=== PATIENT | female | born 1990 | race Caucasian/White ===

== ENCOUNTER 2024-08-18 05:46 | Emergency (ER) | payer BC, SELFPAY ==
--- NOTE | ~2024-08-18 | CT_ITS ---
Clinical Indication: Shortness of breath CT Scan of the Chest with Contrast: Technique: Contiguous sections were acquired throughout the chest after intravenous administration of 100 cc of Omnipaque 350. Dose reduction technique was used on this scan by utilizing automated expos ure control and iterative reconstruction technique. The dose-length product (DLP) was 199.51 mGy-cm. Findings: There is no evidence of any significant mediastinal, hilar or axillary lymphadenopathy. There is no f illing defect in the pulmonary arterial tree to suggest pulmonary embolus. There is no evidence of ao rtic dissection or aneurysm. There is no evidence of pleural or pericardial effusion. The lungs are clear. No pulmonary nodules or infiltrates are noted. Images through the upper abdomen reveal no abnormalities. Impression: No evidence of pulmonary embolus, aortic dissection, or aortic aneurysm. Clear lungs. Reviewed, dictated and finalized at [facility]. Impression: No evidence of pulmonary embolus, aortic dissection, or aortic aneurysm. Clear lungs.
--- NOTE | ~2024-08-18 | US_ITS ---
Duplex Sonography of the bilateral lower extremities: Indication: Swelling Sagittal and transverse B-mode images as well as color-flow imaging were performed on the right and l eft femoral and popliteal veins. B-mode examination was done without and with compression in the tra nsverse plane. There is good visualization of the bilateral common femoral, proximal profunda femora l, superficial femoral, greater saphenous, and popliteal veins. Normal flow was seen on color-flow im aging. Normal compressibility was demonstrated. Visualized calf veins are also patent. Impression: No evidence of deep vein thrombosis involving the bilateral lower extremities. Reviewed, dictated and finalized at location [facility]. Impression: No evidence of deep vein thrombosis involving the bilateral lower e xtremities.
--- NOTE | ~2024-08-18 | XR_ITS ---
Portable chest x-ray Comparison: None Clinical History: Chest pain Findings: Lungs are clear, without focal consolidation or pleural effusion. Cardiomediastinal silho uette is unremarkable. Bones and soft tissues are unremarkable. Impression: Normal chest. Reviewed, dictated and finalized at location . Impression: Normal chest.
[2024-08-18 05:49] VITALS: BP 147/102; PULSE 130; RESP 17; TEMP 36.6; O2SAT 98
--- NOTE | 2024-08-18 05:59 | ECG_ITS ---
Test Date: 2024-08-18 06:03:38 Measurements Intervals Delta Rate: 121 P: 79 RI: 148 QRS: -14 QRSD: 90 T: 58 QT: 309 QTc: 440 Interpretive Statements SINUS TACHYCARDIA Electronically Signed On 08-19-2024 13:55:14 CDT by Chepe Felipe D.O
[2024-08-18 06:22] LABS: Basophils Percent Auto 0.4 % (0.2-1.2); Eosinophils Percent Auto 0.3 % (0-4.4); Hemoglobin 15.6 g/dL (12.0-15.0); Immature Granulocyte Absolute 0.02 K/mm3 (0.00-0.031); Immature Granulocyte Percent A 0.3 % (0-0.5); Lymphocytes Absolute Auto 1.77 K/mm3 (0.9-3.2); Lymphocytes Percent Auto 23.8 % (18.3-44.2); Mean Corpuscular HGB Conc 34.7 g/dl (32-36); Mean Corpuscular Hemoglobin 30.4 pg (26-34); Mean Corpuscular Volume 87.5 fl (80-100); Mean Platelet Volume 9.5 fl (7.4-10.4); Monocytes Absolute Auto 0.4 K/mm3 (0.1-0.6); Monocytes Percent Auto 5.4 % (2.6-8.5); Neutrophils Absolute Auto 5.2 K/mm3 (1.3-6.7); Neutrophils Percent Auto 69.8 % (45.5-73.1); Platelet Count Result 229 k/mm3 (150-375); Red Blood Count 5.14 M/mm3 (4.2-5.4); Red Cell Distribution Width 12.4 % (11.5-14.5); White Blood Count 7.4 K/mm3 (4.5-10.0)
[2024-08-18 06:35] LABS: Alanine Aminotransferase 35 U/L (6-35); Albumin Level 4.8 g/dL (3.5-5.1); Alkaline Phosphatase 77 U/L (38-126); Anion Gap 12 mmol/L (4-12); Aspartate Amino Transferase 31 U/L (14-36); Bilirubin,Total 0.7 mg/dL (0.2-1.3); Blood Urea Nitrogen 13 mg/dL (7-17); Calcium 9.7 mg/dL (8.4-10.2); Carbon Dioxide 24 mmol/L (22-30); Chloride 103 mmol/L (98-107); Estimated CRCL calculation 93 ml/min; Estimated Glomerular Filt Rate > 60; Glucose 130 mg/dL (65-110); Lipase 56 U/L (23-300); Potassium 3.5 mmol/L (3.4-5.0); Sodium 139 mmol/L (137-145)
[2024-08-18 06:41] LABS: INR 0.9
[2024-08-18 06:42] LABS: Partial Thromboplastin Time 28.3 Seconds (22.3-36.8)
[2024-08-18 06:48] LABS: Troponin I < 0.012 ng/mL (0.000-0.034)
--- OUTSIDE RECORDS SUMMARY | 2024-08-18 07:23 | XMS_ITS ---
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 Unavailable [phone]
--- OUTSIDE RECORDS SUMMARY | 2024-08-18 07:23 | XMS_ITS | Clinical Summary ---
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) Etiology 03/16/2021 MACK MILLS MSN, CNM Active Last Documented On 10:35AM ; [facility] [employer] Plan of Treatment Future Appointments Date Time Location [facility] 04/08/2025 9:30AM [facility] [employer] [place] Cyndie FARIAS APRN Last Documented On 9:59AM ; [facility] [employer] Assessments Includes: Assessments from this encounter No Assessments Recorded Medical Equipment - Implanted Devices Includes: Current Devices No Medical Equipment Recorded Medications Includes: Medications discussed during this encounter and other current Medications New / Renewed during this visit AMBREEN ROSS APRN on 07/16/2024 Ciprofloxacin HCl 500 MG Ora l Tablet Provider: AMBREEN ROSS APRN 5 day supply: 10 tablet, 0 refills Diagnosis: Acute vaginitis take tablet by mouth twice a day Pharmacy: [facility] [id number] [facility], [id number] - Last Documented On 07/16/2024 9:32AM By AMBREEN ROSS ; [facility] [employer] metroNIDAZOLE 500 MG Oral Tablet Provider: AMBREEN ROSS APRN 7 day supply: 14 tablet, 0 refills Diagnosis: Acute vaginitis Take one tablet by mouth twi ce daily for 7 days. Avoid alcohol use with this medication. Pharmacy: [facility] [id number] [facility], [id number] - Last Documented On 07/16/2024 9:32AM By AMBREEN ROSS ; [facility] [employer] Current Medications (continue as prescribed) buPROPion HCl ER (XL) 150 MG Oral Tablet Extended Release 24 Hour 06/12/2024 - 12/09/2024 Provider: RAGHAVENDRA PLAZA M.D. Diagnosis: TAKE 1 TABLET BY MOUTH DAILY Last Documented On 06/12/2024 11:45AM By NELY MCGUIRE ; [facility] [employer] Liletta (52 MG) 20.1 MCG/DAY Intrauterine Intrau terine device 03/29/2023 Provider: Diagnosis: 03/29/23 Last Documented On 03/29/2023 4:15PM By MARCO CRAWFORD ; [facility] [employer] VITAMIN Oral Tablet 03/11/2020 Provider: Diagnosis: Last Documented On 03/11/2020 9:35AM By JET SAENZ ; [facility] [employer], Culturelle Oral Capsule 03/11/2020 Provider: Diagnosis: Last Documented On 03/11/2020 9:34AM By JET SAENZ ; [facility] [employer] Medications Administered Includes: Administered Medications from this encounter No Administered Medications Recorded Results Includes: Results discussed during this encounter No Results Recorded For Specified Dates History of Present Illness Includes: History of Present Illness from this encounter No History of Present Illness Recorded Social History No Social History Recorded - Smoking Status Unknown Medical History Includes: Medical History addressed during this encounter No Medical History Recorded Family History Includes: Family History addressed during this encounter No Family History Recorded Review of Systems Includes: Review of Systems from this encounter No Review of Systems Recorded Mental Status Includes: Mental Status from this encounter No Mental Status Recorded Functional Status Includes: Functional Status from this encounter No Functional Status Recorded Physical Exam Includes: Physical Exam from this encounter No Physical Exam Recorded Allergies Includes: Active Allergies Substance Type Reaction Onset Date Resolved Date Statu s Mucinex DM 30-600 MG Oral Tablet, extended-release 12 hour Allergy Skin Rashes / Eruption of skin, Hives / Urticaria, FEET SWELL 03/15/2014 Active Last Documented On 5 10:07AM ; [facility] [employer] Ibuprofen Allergy Skin Rashes / Er uption of skin, Hives / Urticaria 11/15/2014 Active Last Documented On 5 10:07AM ; [facility] [employer] Encounters Encounter Provider Location Date Check-In Time Check-Out Time Diagnosis #PRESCRIPTION REFILLS AMBREEN ROSS APRN 07/16/2024 9:25AM 11:59PM Insurance Includes: Active Insurance Policies Plan Name Member ID Group # Subscriber Relationship Effect deisy Dates 1 - [facility] [id number] LINDA GONG Self 09/28/2021 - U nknown Clinical Notes Includes: Clinical Notes from this encounter * Progress note Date Encounter Last Documented by 07/16/2024 #PRESCRIPTION REFILLS Last docum ented on 07/16/2024; 9:27 AM, AMBREEN ROSS APRN; [facility] [employer] Discussed Health track swab positive for ureaplasma and bacterial vaginosis. Ciprofloxacin and metronidazole scripts sent to pharmacy listed on file. Instructed to avoid intercourse until treatment is complete. No alcohol use while taking metronidazole. Instructed to contact office if symptoms do not improve or resolve with treatment. Plan StartCited - Acute vaginitis Ciprofloxacin HCl 500 MG tablet take tablet by mouth twice a day, 5 days, 0 refills metroNIDAZOLE 500 MG tablet Take one tablet by mouth twice daily for 7 days. Avoid alcohol use with this medication., 7 days, 0 refills EndCited
--- OUTSIDE RECORDS SUMMARY | 2024-08-18 07:24 | XMS_ITS | Clinical Summary ---
Author Organization [facility] Address [address] [place] [phone] Phone Care Team Providers Care Finish Saw Operator Name Role Phone MELA SmithRAGHAVENDRA Unavailable [phone] Reason for Visit and Chief Complaint gynecologic annual exam - The Chief Complaint is: Annual Problems Includes: Problems addressed during this encounter and other active Problems Current Visit Onset Date Resolved Date Provider Matt jacobson Status History of Allergic Rhinitis 03/25/2014 Unknown ASTRID CHEW REHAB SERVICES AIDE Resolved Last Documented On 12/17/2014 3:26PM ; [facility] Note: was Closed. 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 03/16/2021 MACK MILLS MSN, CNM Active Last Documented On 1 10:35AM ; [facility] Plan of Treatment - Follow-up visit 1 year or as needed - Last Documented On 04/03/2024 11:35AM ; [facility] Pending Tests Order Diagnosis Results Due Ordering P [facility] LABS Pap Thin Prep: Co-Testing with HPV Encntr for hairspring assembler exam (general) (routine) w abnormal findings 04/03/24 KADEEM FARIAS REHAB SERVICES AIDE Last Documented On 4 10:19AM ; [facility] LABS CBC with Diff Other fatigue 04/03/24 KADEEM FARIAS REHAB SERVICES AIDE Last Documented On 4 10:19AM ; [facility] LABS Comprehensive Metabolic Panel Other fatigue KADEEM FARIAS REHAB SERVICES AIDE Last Documented On 4 10:19AM ; [facility] LABS B-12 Other fatigue 04/03/24 KADEEM COUCH REHAB SERVICES AIDE Last Documented On 4 10:19AM ; [facility] LABS T3 Free Other fatigue 04/03/24 KADEEM COUCH REHAB SERVICES AIDE Last Documented On 4 10:19AM ; [facility] LABS T4 Free Other fatigue 04/03/24 KADEEM COUCH REHAB SERVICES AIDE Last Documented On 4 10:19AM ; [facility] LABS TSH Other fatigue 04/03/24 KADEEM COUCH REHAB SERVICES AIDE Last Documented On 4 10:19AM ; [facility] Lab CHLAMYDIA/GC PCR, LIQUID BASE VIAL 1 06/10/23 KADEEM FARIAS REHAB SERVICES AIDE Last Documented On 4 8:34AM ; [facility] Lab PAP SMEAR THINPREP COMPUTER IMAGED 1 06/10/23 KADEEM FARIAS REHAB SERVICES AIDE Last Documented On 4 8:34AM ; [facility] Lab T3, FREE 04/10/24 KADEEM HARVEY S REHAB SERVICES AIDE Last Documented On 4 11:16AM ; [facility] Lab TSH 3rd Generation, Ultrasensitive 1 06/10/23 KADEEM FARIAS REHAB SERVICES AIDE Last Documented On 4 11:16AM ; [facility] Lab VITAMIN B12 04/10/24 KADEEM HERNÁNDEZ RS REHAB SERVICES AIDE Last Documented On 4 11:16AM ; [facility] Lab T4, FREE 04/10/24 KADEEM HARVEY S REHAB SERVICES AIDE Last Documented On 4 11:16AM ; [facility] Future Appointments Date Time Location Provi darion Yearly 04/08/2025 9:30AM [facility] OB-CONTINUOUS MINING MACHINE LODE MINER [place] Cyndie ESPERANZA FARIAS REHAB SERVICES AIDE Last Documented On 4 9:59AM ; [facility] Instructions to patient Instructions for patient : B reast Self Exam discussed Last Documented On 11:27AM ; [facility] Assessments Includes: Assessments from this encounter Findings - Routine pelvic exam WELL WOMEN VISIT - Last Documented On 04/03/2024 11:35AM ; [facility] - Fatigue - Last Documented On 04/03/2024 11:35AM ; [facility] Instructions Includes: Instructions from this encounter Instructions to patient Instructions for patient : B reast Self Exam discussed Last Documented On 11:27AM ; [facility] Medical Equipment - Implanted Devices Includes: Current Devices No Medical Equipment Recorded Medications Includes: Medications discussed during this encounter and other current Medications Discontinued / Stopped on this date MACK ESCALANTE CNM on 12/22/2023 Nitrofurantoin Monohyd Macro 100 MG Oral Capsule Provider: MACK ESCALANTE CNM Diagnosis: Anxiety disorder , unspecified Last Documented On 04/03/2024 9:22AM By ARGENTINA GERARD ; [facility] 06/25 1-20 MG-MCG Oral Tablet Pro vider: MACK ESCALANTE CNM Diagnosis: Last Documented On 04/03/2024 9:25AM By ARGENTINA GERARD ; [facility] Spironolactone 50MG Oral Tablet Provider: MACK ESCALANTE CNM Diagnosis: Last Documented On 04/03/2024 9:26AM By ARGENTINA GERARD ; [facility], Current Medications (continue as prescribed) buPROPion HCl ER (XL) 150 MG Oral Tablet Extended Release 24 Hour 06/12/2024 - 12/09/2024 Provider: RAGHAVENDRA PLAZA M.D. Diagnosis: TAKE 1 TABLET BY MOUTH DAILY Last Documented On 06/12/2024 11:45AM By NELY MCGUIRE ; [facility] Liletta (52 MG) 20.1 MCG/DAY Intrauterine Intrau terine device 03/29/2023 Provider: Diagnosis: 03/29/23 Last Documented On 03/29/2023 4:15PM By MARCO CRAWFORD ; [facility] VITAMIN Oral Tablet 03/11/2020 Provider: Diagnosis: Last Documented On 03/11/2020 9:35AM By JET SAENZ ; [facility] Culturelle Oral Capsule 03/11/2020 Provider: Diagnosis: Last Documented On 03/11/2020 9:34AM By JET SAENZ ; [facility] Past Medications on file Ciprofloxacin HCl 500 MG Oral Tablet 07/16/2024 - 07/21/2024 Provider: AMBREEN Jacobson Diagnosis: Acute vaginitis take tablet by mouth twice a day Last Documented On 07/16/2024 9:32AM By AMBREEN ROSS ; [facility] metroNIDAZOLE 500 MG Oral Tablet 07/16/2024 - 07/23/2024 Provider: AMBREEN Jacobson Diagnosis: Acute vaginitis Take one tablet by mouth twi ce daily for 7 days. Avoid alcohol use with this medication. Last Documented On 07/16/2024 9:32AM By AMBREEN ROSS ; [facility] Valtrex 500 MG Oral Tablet 01/26/2023 - 07/25/2023 Pro vider: KADEEM FARIAS APRN Diagnosis: once a day Last Documented On 01/26/2023 12:48PM By NELY MCGUIRE ; [facility] Medications Administered Includes: Administered Medications from this encounter No Administered Medications Recorded Vital Signs Includes: Vital Signs from this encounter Vital Name 04/03/2024 09:26A Blood Pressure Sitting (mmHg) 122/78 Height (in) 71 Weight (lb) 189.7 Body Mass Index 26.5 Body Surface Area 2.1 Last Documented: On 04/03/2024 9:28AM ; [facility] Results Includes: Results discussed during this encounter No Results Recorded For Specified Dates History of Present Illness Includes: History of Present Illness from this encounter HPI LINDA GONG is a 33 year old female. The patient presents for an annual exam. See details below. - Allergy list reviewed - Medication list reviewed - Feeling fine . Linda presents today for her annual exam. She denies CONTINUOUS MINING MACHINE LODE MINER concerns but does c/o increased fatigue. Menses are now absent with IUD; it did take about 10 months for menses to become absent, but no bleeding for 2 months Social History Description Last Updated control is not practiced 3 Last Documented On 4 9:22AM ; [facility] Heterosexual activity 03/22/2023 Last Documented On 4 9:22AM ; [facility] Occupation 03/18/2022 Last Documented On 4 9:22AM ; [facility] -2019 01/30/2019 Last Documented On 4 9:22AM ; [facility] Never used drugs 10/07/2017 Last Documented On 4 9:22AM ; [facility] 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 Last Documented On 4 9:22AM ; [facility] Alcohol use 03/17/2015 Last Documented On 4 9:22AM ; [facility] Not using drugs 03/17/2015 Last Documented On 4 9:22AM ; [facility] Alcohol use: 2 drinks or less per day Last Documented On 4 9:22AM ; [facility] Sexually active 03/17/2015 Last Documented On 4 9:22AM ; [facility] Work history 03/17/2015 Last Documented On 4 9:22AM ; [facility] Smoking status : Never smoker 03/15/2014 Last Documented On 4 9:22AM ; [facility] Procedures and Surgical History Includes: Procedures from this encounter Procedures Code Diagnosis Performing Provider Service Location Service Date Influenza virus vaccine, quadrivalent - FLUARIX 15768 Encounter for immunization KADEEM FARIAS REHAB SERVICES AIDE [facility] OB-CONTINUOUS MINING MACHINE LODE MINER [place] 04/03/2024 Last Documented On 4 2:55PM ; [facility] Immunization Administration Fee 77443 Encounter for immunization KADEEM FARIAS REHAB SERVICES AIDE [facility] OB-CONTINUOUS MINING MACHINE LODE MINER [place] 04/03/2024 Last Documented On 4 2:55PM ; [facility] T3 Free 26533 Encntr for hairspring assembler e xam (general) (routine) w/o abn findings KADEEM FARIAS REHAB SERVICES AIDE [facility] OB-CONTINUOUS MINING MACHINE LODE MINER [place] 04/03/2024 Last Documented On 4 5:11PM ; [facility] Chlamydia Screening 95292 Encntr screen for infections w sexl mode of transmiss [facility] LODE MINER [place] 04/03/2024 Last Documented On 4 5:11PM ; [facility] Gonorrhoeae Screening 15332 Encntr screen for infections w sexl mode of transmiss KADEEM FARIAS [facility] OB-CONTINUOUS MINING MACHINE LODE MINER [place] 04/03/2024 Last Documented On 4 5:11PM ; [facility] Vitamin B12 39905 Encntr for hairspring assembler e xam (general) (routine) w/o abn findings [facility] MINING MACHINE LODE MINER [place] 04/03/2024 Last Documented On 4 5:11PM ; [facility] T4 Free 52048 Encntr for hairspring assembler e xam (general) (routine) w/o abn findings KADEEM FARIAS REHAB SERVICES AIDE [facility] OB-CONTINUOUS MINING MACHINE LODE MINER [place] 04/03/2024 Last Documented On 4 5:11PM ; [facility] TSH 54660 Encntr for hairspring assembler e xam (general) (routine) w/o abn findings [facility]CONT[facility]UOUS MINING MACHINE LODE MINER [place] 04/03/2024 Last Documented On 4 5:11PM ; [facility] Collection of venous blood by venipuncture 41732 Encntr for hairspring assembler exam (general) (routine) w/o abn findings KADEEM FARIAS REHAB SERVICES AIDE [facility] OB-CONTINUOUS MINING MACHINE LODE MINER [place] 04/03/2024 Last Documented On 4 5:11PM ; [facility] HPV; high-risk typing (PLab $42) 65991 Encounter for screening for human papillomavirus (HPV) KADEEM FARIAS REHAB SERVICES AIDE [facility] OB-CONTINUOUS MINING MACHINE LODE MINER [place] 04/03/2024 Last Documented On 4 3:30PM ; [facility] Pap Thin Prep (PLab $32) 94464 Encntr for hairspring assembler exam (general) (routine) w/o abn findings KADEEM FARIAS REHAB SERVICES AIDE [facility] OB-CONTINUOUS MINING MACHINE LODE MINER [place] 04/03/2024 Last Documented On 4 4:14PM ; [facility] Medical History Includes: Medical History addressed during this encounter Description Last Updated Last pap smear date 03/22/2023 5 Last Documented On 4 9:22AM ; [facility] History of dental implant 04/03/2024 Last Documented On 4 11:35AM ; [facility] LMP: IUD 04/03/2024 Last Documented On 4 11:35AM ; [facility] Contraception: 03/22/2023 Last Documented On 4 9:22AM ; [facility] Result: normal NEG HPV 03/22/2023 Last Documented On 4 9:22AM ; [facility] Last mammogram date: 2013 NORMAL PER PT 03/22/2023 Last Documented On 4 9:22AM ; [facility] Partner with vasectomy 03/18/2022 Last Documented On 4 9:22AM ; [facility] History of Cervical dysplasia--mild (GLEN I) 04/14/2021 04/22/2021 Last Documented On 4 9:22AM ; [facility] History of SARS-associated coronavirus 03/11/2020 Last Documented On 4 9:22AM ; [facility] section was one 10/07/2017 Last Documented On 4 9:22AM ; [facility] History of extraction of wisdom tooth Last Documented On 4 9:22AM ; [facility] History of anxiety disorder NOS 10/08/19 18 Last Documented On 4 9:22AM ; [facility] History of depression 10/07/2017 Last Documented On 4 9:22AM ; [facility] History of urinary tract infection 10/07 Last Documented On 4 9:22AM ; [facility] History of vaginitis 10/07/2017 Last Documented On 4 9:22AM ; [facility] Upper gastrointestinal endos copy with removal of foreign body 1996 - swallowed a quarter 03/17/2015 Last Documented On 4 9:22AM ; [facility] 1 previous section(s) 5 Last Documented On 4 9:22AM ; [facility] Para 1 03/17/2015 Last Documented On 4 9:22AM ; [facility] section 10/28/2014 -Girl 015 Last Documented On 4 9:22AM ; [facility] History of allergic rhinitis spring gio rg03/25/2014 Last Documented On 4 9:22AM ; [facility] Human papilloma virus vaccine, quadrival ent 03/15/2014 Last Documented On 4 9:22AM ; [facility] 1 03/15/2014 Last Documented On 4 9:22AM ; [facility] Family History Includes: Family History addressed during this encounter Description Last Updated Paternal aunt's history of breast cancer 04/03/2024 Last Documented On 4 11:35AM ; [facility] Maternal grandmother's history of osteop orosis 04/03/2024 Last Documented On 4 11:35AM ; [facility] Maternal history of valvular heart disea se 04/03/2024 Last Documented On 4 11:35AM ; [facility] Maternal grandmother's history of myocar dial infarction 04/03/2024 Last Documented On 4 11:35AM ; [facility] Maternal grandmother's history of lung c ancer 04/03/2024 Last Documented On 4 11:35AM ; [facility] Maternal history of anxiety disorder NOS 10/07/2017 Last Documented On 4 9:22AM ; [facility] Maternal history of depression 8 Last Documented On 4 9:22AM ; [facility] No family history of malignant neoplasm of large intestine 03/17/2015 Last Documented On 4 9:22AM ; [facility] No family history of diabetes mellitus 1 Last Documented On 4 9:22AM ; [facility] No family history of malignant female br east neoplasm 03/15/2014 Last Documented On 4 9:22AM ; [facility] No family history of malignant neoplasm of the ovary 03/15/2014 Last Documented On 4 9:22AM ; [facility] Review of Systems Includes: Review of Systems from this encounter Systemic: No recent weight change. Head: No headache. Eyes: No vision problems. Breasts: No breast lump, no nipple discharge, and no pain in breast. Cardiovascular: No chest pain or discomfort. Pulmonary: No dyspnea. Gastrointestinal: No nausea, no vomiting, no abdominal pain, and no diarrhea. Genitourinary: No hematuria and no increase in urinary frequency. No dysuria. No genital lesion. Psychological: No sleep disturbances. Skin: No skin symptoms and no skin lesions. Mental Status Includes: Mental Status from this encounter No Mental Status Recorded Functional Status Includes: Functional Status from this encounter No Functional Status Recorded Physical Exam Includes: Physical Exam from this encounter Immunizations Includes: Immunizations addressed during this encounter Vaccine Dose # Date Site Reaction(s) Status Source Influenza 4 04/03/2024 Left Deltoid Comple te (Administered) [facility] Last Documented On 4 10:18AM ; [facility] Allergies Includes: Active Allergies Substance Type Reaction Onset Date Resolved Date Statu s Mucinex DM 30-600 MG Oral Tablet, extended-release 12 hour Allergy Skin Rashes / Eruption of skin, Hives / Urticaria, FEET SWELL 03/15/2014 Active Last Documented On 5 10:07AM ; [facility] Ibuprofen Allergy Skin Rashes / Er uption of skin, Hives / Urticaria 11/15/2014 Active Last Documented On 5 10:07AM ; [facility] Encounters Encounter Provider Location Date Check-In Time Check- Out Time Diagnosis Yearly KADEEM FARIAS APRN [facility] OB-CONTINUOUS MINING MACHINE LODE MINER [place] 4 9:30AM 10:41AM Assessment of Fatigue,Routin e Pelvic Exam Insurance Includes: Active Insurance Policies Plan Name Member ID Group # Subscriber Relationship Effect deisy Dates 1 - [facility] [id number] 113 LINDA GONG Self 09/28/2021 - U nknown Clinical Notes Includes: Clinical Notes from this encounter * Progress note Date Encounter Last Documented by 04/03/2024 Yearly Last documented on 04/03/2024; 11:35 AM, KADEEM FARIAS APRN; [facility] Active Problems & Conditions - Anxiety Disorder of Unknown (Wister III) Etiology Chief Complaint The Chief Complaint is: Annual. Reason For Visit Gynecologic annual exam. History of Present Illness LINDA GONG is a 33 year old female. The patient presents for an annual exam. See details below. - Allergy list reviewed - Medication list reviewed - Feeling fine . Linda presents today for her annual exam. She denies CONTINUOUS MINING MACHINE LODE MINER concerns but does c/o increased fatigue. Menses are now absent with IUD; it did take about 10 months for menses to become absent, but no bleeding for 2 months Current Medication - buPROPion HCl ER (XL) 150 MG Oral Tablet Extended Release 24 Hour TAKE 1 TABLET BY MOUTH DAILY, 30 days, 11 refills - Culturelle Oral Capsule 0 days, 0 refills - Liletta (52 MG) 20.1 MCG/DAY Intrauterine Intrauterine device 03/29/23, 0 days, 0 refills - VITAMIN Oral Tablet 0 days, 0 refills Past Medical/Surgical History Reported: LMP: IUD, Last pap smear date 03/22/2023 result: normal NEG HPV, Last mammogram date: 2013 NORMAL PER PT, and Contraception: partner with vasectomy. : section delivery was one, 1, and para 1 having 1 section(s). Diagnoses: Allergic rhinitis spring allergies. Urinary tract infection. Cervical dysplasia--mild (GLEN I) 04/14/2021 Vaginitis. Depression Anxiety disorder NOS. SARS-associated coronavirus 02/2020 Procedural: - Human papilloma virus vaccine, quadrivalent Procedural: - Dental implant - Upper gastrointestinal endoscopy with removal of foreign body 1995 - swallowed a quarter Surgical: - Extraction of wisdom tooth - section 10/28/2014 -Girl Social History Tobacco use: Smoking status: Never smoker. Alcohol: Alcohol use alcohol use: 2 drinks or less per day. Drug Use: Not using drugs. Never used drugs. 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 Sexual: Sexually active heterosexual activity and control is not practiced. Allergies - Ibuprofen Reaction: , Hives / Urticaria - Mucinex DM 30-600 MG Oral Tablet, extended-release 12 hour Reaction: , Hives / Urticaria, FEET SWELL Family History No diagnosis of diabetes mellitus No diagnosis of malignant neoplasm of large intestine No diagnosis of malignant female breast neoplasm No diagnosis of malignant neoplasm of ovary Maternal: Valvular heart disease Depression Anxiety disorder NOS Maternal grandmother's: Myocardial infarction Osteoporosis Lung cancer Paternal aunt's: Breast cancer Review Of Systems Systemic: No recent weight change. Head: No headache. Eyes: No vision problems. Breasts: No breast lump, no nipple discharge, and no pain in breast. Cardiovascular: No chest pain or discomfort. Pulmonary: No dyspnea. Gastrointestinal: No nausea, no vomiting, no abdominal pain, and no diarrhea. Genitourinary: No hematuria and no increase in urinary frequency. No dysuria. No genital lesion. Psychological: No sleep disturbances. Skin: No skin symptoms and no skin lesions. Physical Findings - Vitals taken 04/03/2024 09:26 am BP-Sitting 122/78 mmHg Height 71 in Weight 189 lbs 11.2 oz Body Mass Index 26.5 kg/m2 Body Surface Area 2.1 m2 General Appearance: - Well developed. - Well nourished. - In no acute distress. Neck: Thyroid: - Showed no abnormalities. Lymph Nodes: - Supraclavicular lymph nodes were not enlarged. - Axillary lymph nodes were not enlarged. Breasts: General/bilateral: - No tender nodule of the areola. - No diffuse fibrous tissue in the breast(s). Right Breast: - Nipple was normal. - No abnormal secretion. - No mass was found. - No tenderness. Left Breast: - Nipple was normal. - No abnormal secretion. - No mass was found. - No tenderness. Lungs: - Clear to auscultation. Cardiovascular: Heart Rate And Rhythm: - Normal. Murmurs: - No murmurs were heard. Back: - No right costovertebral angle tenderness. - No left costovertebral angle tenderness. Abdomen: Palpation: - Abdominal non-tender. - No mass was palpated in the abdomen. Liver: - Not enlarged. Spleen: - Not enlarged. Genitalia: External: - Genitalia showed no abnormalities. Pelvic: - No ovarian mass. - No ovarian mass. Vagina: - No vaginal discharge was observed. - No cystocele was observed. - No rectocele was observed. Cervix: - Showed no lesion; IUD strings visualized. - Did not demonstrate pain elicited by motion. Uterus: - Not enlarged. - Not tender. Uterine Adnexae: - Uterine adnexa was not tender. Assessment - Routine pelvic exam WELL WOMEN VISIT - Fatigue Vaccinations - Influenza Dose #4 Status: Administered Date: 04/03/2024 Counseling/Education - Instructions for patient: Breast Self Exam discussed Discussed Pap smear collected per patient preference. Will draw lab work for fatigue. I did recommend increase water intake, clean eating, exercise and vitamin ADK supplement. IUD has indication of 5 years for heavy bleeding and 8 years for contraception. Plan StartCited - Encntr for hairspring assembler exam (general) (routine) w abnormal findings LABS: Pap Thin Prep: Co-Testing with HPV EndCited StartCited - Encntr for hairspring assembler exam (general) (routine) w/o abn findings Lab: CHLAMYDIA/GC PCR, LIQUID BASE VIAL Lab: PAP SMEAR THINPREP COMPUTER IMAGED Lab: T3, FREE Lab: TSH 3rd Generation, Ultrasensitive Lab: VITAMIN B12 Lab: T4, FREE EndCited StartCited - Other fatigue LABS: CBC with Diff, Comprehensive Metabolic Panel, B-12, T3 Free, T4 Free, TSH EndCited - Follow-up visit 1 year or as needed
--- OUTSIDE RECORDS SUMMARY | 2024-08-18 07:24 | XMS_ITS | Clinical Summary ---
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 Past Visits Onset Date Resolved Date Provider Condition Status Anxiety Disorder of Unknown (Colony III) Etiology 03/16/2021 MACK MILLS MSN, CNM Active Last Documented On 1 10:35AM ; [facility] Plan of Treatment Follow-up as needed and annually. - Last Documented On 10/19/2023 3:01PM ; [facility] Pending Tests Order Diagnosis Results Due Ordering Karen harrell Lab CHLAMYDIA/GC/TRICH BY PCR 10/26/23 JULIO CESAR DELANEY PA-C Last Documented On 4 12:14PM ; [facility] Lab HIV-1/2 ANTIBODY 10/26/23 JULIO CESAR RYAN PA-C Last Documented On 4 12:14PM ; [facility] Lab HEPATITIS PROFILE ACUTE 10/26/23 Radha DELANEY PA-C Last Documented On 4 12:14PM ; [facility] Lab SYPHILIS TREPSURE EIA W/ REFLEX TO TP-PA 10/26/23 JULIO CESAR DELANEY PA-C Last Documented On 12:14PM ; [facility], Future Appointments Date Time Location Provi darion Yearly 04/08/2025 9:30AM [facility] [place] FARI[place] APRN Last Documented On 9:59AM ; [facility], Assessments Includes: Assessments from this encounter Findings STI screening. - Last Documented On 10/19/2023 3:01PM ; [facility], Medical Equipment - Implanted Devices Includes: Current Devices No Medical Equipment Recorded Medications Includes: Medications discussed during this encounter and other current Medications Current Medications (continue as prescribed) buPROPion HCl ER (XL) 150 MG Oral Tablet Extended Release 24 Hour 06/12/2024 - 12/09/2024 Provider: RAGHAVENDRA PLAZA M.D. Diagnosis: TAKE 1 TABLET BY MOUTH DAILY Last Documented On 06/12/2024 11:45AM By NELY MCGUIRE ; [facility], Liletta (52 MG) 20.1 MCG/DAY Intrauterine Intrau terine device 03/29/2023 Provider: Diagnosis: 03/29/23 Last Documented On 03/29/2023 4:15PM By MARCO CRAWFORD ; [facility] VITAMIN Oral Tablet 03/11/2020 Provider: Diagnosis: Last Documented On 03/11/2020 9:35AM By JET SAENZ ; [facility], Culturelle Oral Capsule 03/11/2020 Provider: Diagnosis: Last Documented On 03/11/2020 9:34AM By JET SAENZ ; [facility], Past Medications on file Ciprofloxacin HCl 500 MG Oral Tablet 07/16/2024 - 07/21/2024 Provider: AMBREEN Gonzalez Diagnosis: Acute vaginitis take tablet by mouth twice a day Last Documented On 07/16/2024 9:32AM By AMBREEN ROSS ; [facility], metroNIDAZOLE 500 MG Oral Tablet 07/16/2024 - 07/23/2024 Provider: AMBREEN Gonzalez Diagnosis: Acute vaginitis Take one tablet by mouth twi ce daily for 7 days. Avoid alcohol use with this medication. Last Documented On 07/16/2024 9:32AM By AMBREEN ROSS ; [facility] Valtrex 500 MG Oral Tablet 01/26/2023 - 07/25/2023 Pro vider: KADEEM CHIPJAQUELIN SILVINA Diagnosis: once a day Last Documented On 01/26/2023 12:48PM By NELY MCGUIRE ; [facility] Medications Administered Includes: Administered Medications from this encounter No Administered Medications Recorded Vital Signs Includes: Vital Signs from this encounter Vital Name 10/19/2023 01:11P Blood Pressure Sitting L 116/74 BP Cuff Size Regular Temp-Temporal 98.2 Height (in) 71 Weight (lb) 196 Body Mass Index 27.3 Body Surface Area 2.1 Last Documented: On 10/19/2023 1:12PM ; [facility] Results Includes: Results discussed during this encounter No Results Recorded For Specified Dates History of Present Illness Includes: History of Present Illness from this encounter ALISSA GONG is a 32 year old female. Linda is a 32 year old female who presents to clinic today for STI screening. The patient is asymptomatic, but routinely does screening. No changes in health history since last appointment. The patient presents with the following symptoms. - Allergy list reviewed - Medication list reviewed - Feeling fine - No vaginal discharge - No sexual complaints Social History Description Last Updated control is not practiced 3 Last Documented On 4 1:08PM ; [facility] Heterosexual activity 03/22/2023 Last Documented On 4 1:08PM ; [facility] Occupation 03/18/2022 Last Documented On 4 1:08PM ; [facility] Non-smoker 03/11/2020 Last Documented On 4 1:08PM ; [facility] -2019 01/30/2019 Last Documented On 4 1:08PM ; [facility] Never used drugs 10/07/2017 Last Documented On 4 1:08PM ; [facility]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 Last Documented On 4 1:08PM ; [facility] Alcohol use 03/17/2015 Last Documented On 4 1:08PM ; [facility] No tobacco use 03/17/2015 Last Documented On 4 1:08PM ; [facility] Not a former smoker 03/17/2015 Last Documented On 4 1:08PM ; [facility] Not using drugs 03/17/2015 Last Documented On 4 1:08PM ; [facility] Alcohol use: 2 drinks or less per day Last Documented On 4 1:08PM ; [facility] Sexually active 03/17/2015 Last Documented On 4 1:08PM ; [facility] Work history 03/17/2015 Last Documented On 4 1:08PM ; [facility] Smoking status : Never smoker 03/15/2014 Last Documented On 4 1:08PM ; [facility] Procedures and Surgical History Includes: Procedures from this encounter Procedures Code Diagnosis Performing Provider Service Location Service Date Collection of venous blood by venipuncture 71930 Encntr screen for infections w sexl mode of transmiss JULIO CESAR DELANEY PA-C [facility] [place] 10/19/2023 Last Documented On 4 2:23PM ; [facility] Chlamydia Screening 30077 Encntr screen for infections w sexl mode of transmiss JULIO CESAR DELANEY PA-C [facility] PROC[facility] TECHNIC[facility] [place] 10/19/2023 Last Documented On 4 11:57AM ; [facility] Gonorrhoeae Screening 00900 Encntr screen for infections w sexl mode of transmiss JULIO CESAR DELANEY PA-C [facility] PROCESS TECHNIC[facility] [place] 10/19/2023 Last Documented On 4 11:57AM ; [facility] Trichomonas Vaginalis 21228 Encntr screen for infections w sexl mode of transmiss JULIO CESAR DELANEY PA-C [facility]FIN[facility] PROCESS TECHNIC[facility] [place] [facility] 10/19/2023 Last Documented On 4 11:57AM ; [facility] HIV-1 antigen, with HIV-1 & HIV-2 antibodies, single result 55170 Encntr screen for infections w sexl mode of transmiss JULIO CESAR DELANEY [place] [facility] TECHNIC[facility] [place] [facility] 10/19/2023 Last Documented On 4 9:59AM ; [facility] Hepatitis Panel 50130 Encntr screen fo r infections w sexl mode of transmiss JULIO CESAR EASTMANRUSSELL ROSE [facility]FIN[facility] PROCESS TECHNIC[facility] [place] 10/19/2023 Last Documented On 4 9:59AM ; [facility] Syphilis Treponemal Total Ab with Reflex to TP-PA 61968 Encntr screen for infections w sexl mode of transmiss JULIO CESAR EASTMANRUSSELL ROSE [facility]FIN[facility] PROCESS TECHNIC[facility] [place] [facility] 10/19/2023 Last Documented On 4 9:59AM ; [facility] Clinical summary provided to patient Last Documented On 4 1:10PM ; [facility] Surgical History Last Updated Surgical / procedural history 03/17/2015 Last Documented On 4 1:08PM ; [facility] Medical History Includes: Medical History addressed during this encounter Description Last Updated Last pap smear date 03/22/2023 5 Last Documented On 4 1:08PM ; [facility] LMP: 09/23/2023 10/19/2023 Last Documented On 4 3:01PM ; [facility] Contraception: 03/22/2023 Last Documented On 4 1:08PM ; [facility] Result: normal NEG HPV 03/22/2023 Last Documented On 4 1:08PM ; [facility] Last mammogram date: 2013 NORMAL PER PT 03/22/2023 Last Documented On 4 1:08PM ; [facility] Partner with vasectomy 03/18/2022 Last Documented On 4 1:08PM ; [facility] History of Cervical dysplasia--mild (GLEN I) 04/14/2021 04/22/2021 Last Documented On 4 1:08PM ; [facility] Exposure to STD 04/24/2020 Last Documented On 4 1:08PM ; [facility] History of SARS-associated coronavirus 03/11/2020 Last Documented On 4 1:08PM ; [facility] section was one 10/07/2017 Last Documented On 4 1:08PM ; [facility] History of extraction of wisdom tooth Last Documented On 4 1:08PM ; [facility] History of anxiety disorder NOS 10/08/19 18 Last Documented On 4 1:08PM ; [facility] History of depression 10/07/2017 Last Documented On 4 1:08PM ; [facility] History of urinary tract infection 10/07 Last Documented On 4 1:08PM ; [facility] History of vaginitis 10/07/2017 Last Documented On 4 1:08PM ; [facility] Upper gastrointestinal endos copy with removal of foreign body 1996 - swallowed a quarter 03/17/2015 Last Documented On 4 1:08PM ; [facility] 1 previous section(s) 5 Last Documented On 4 1:08PM ; [facility] Para 1 03/17/2015 Last Documented On 4 1:08PM ; [facility] section 10/28/2014 -Girl 015 Last Documented On 4 1:08PM ; [facility] History of allergic rhinitis spring gio rgies 03/25/2014 Last Documented On 4 1:08PM ; [facility] Human papilloma virus vaccine, quadrival ent 03/15/2014 Last Documented On 4 1:08PM ; [facility] 1 03/15/2014 Last Documented On 4 1:08PM ; [facility] Family History Includes: Family History addressed during this encounter Description Last Updated Maternal history of anxiety disorder NOS 10/07/2017 Last Documented On 4 1:08PM ; [facility] Maternal history of depression 8 Last Documented On 4 1:08PM ; [facility] No family history of malignant neoplasm of large intestine 03/17/2015 Last Documented On 4 1:08PM ; [facility] Maternal Grandmother - lung cancer, heart attack ~Mom - leaky heart valve ~Paternal - Pacemaker ~Mom/Grandmother/Aunt had placenta previa 03/15/2014 Last Documented On 4 1:08PM ; [facility] No family history of diabetes mellitus 1 Last Documented On 4 1:08PM ; [facility], No family history of malignant female br east neoplasm 03/15/2014 Last Documented On 4 1:08PM ; [facility] No family history of malignant neoplasm of the ovary 03/15/2014 Last Documented On 4 1:08PM ; [facility] Review of Systems Includes: Review of Systems from this encounter Systemic: No fever and no chills. Gastrointestinal: No nausea and no vomiting. Genitourinary: No hematuria and no increase in urinary frequency. No dysuria. Mental Status Includes: Mental Status from this encounter No Mental Status Recorded Functional Status Includes: Functional Status from this encounter No Functional Status Recorded Physical Exam Includes: Physical Exam from this encounter Allergies Includes: Active Allergies Substance Type Reaction Onset Date Resolved Date Statu s Mucinex DM 30-600 MG Oral Tablet, extended-release 12 hour Allergy Skin Rashes / Eruption of skin, Hives / Urticaria, FEET SWELL 03/15/2014 Active Last Documented On 5 10:07AM ; [facility] Ibuprofen Allergy Skin Rashes / Er uption of skin, Hives / Urticaria 11/15/2014 Active Last Documented On 5 10:07AM ; [facility] Encounters Encounter Provider Location Date Check-In Time Check-Out Time Diagnosis Office Visit JULIO CESAR DELANEY PA-C [facility] PROCESS TECHNIC[facility] [place] [facility] 10/19/19 24 1:15PM 1:27PM Assessment [use For S.o.a.p. Note Free Text] Insurance Includes: Active Insurance Policies Plan Name Member ID Group # Subscriber Relationship Effect deisy Dates 1 - [facility] [id number] 113 LINDA GONG Self 09/28/2021 - U nknown Clinical Notes Includes: Clinical Notes from this encounter * Progress note Date Encounter Last Documented by 10/19/2023 Office Visit Last documented on 10/19/2023; 3:01 PM, JULIO CESAR DELANEY PA-C; [facility] Active Problems & Conditions - Anxiety Disorder of Unknown (Colony III) Etiology Chief Complaint The Chief Complaint is: STD testing. History of Present Illness LINDA GONG is a 32 year old female. Linda is a 32 year old female who presents to clinic today for STI screening. The patient is asymptomatic, but routinely does screening. No changes in health history since last appointment. The patient presents with the following symptoms. - Allergy list reviewed - Medication list reviewed - Feeling fine - No vaginal discharge - No sexual complaints Current Medication - buPROPion HCl ER (XL) 150 MG Oral Tablet Extended Release 24 Hour TAKE 1 TABLET BY MOUTH DAILY, 30 days, 11 refills - Culturelle Oral Capsule 0 days, 0 refills - Junel FE 06/25 1-20 MG-MCG Oral Tablet once a day, 28 days, 0 refills - Liletta (52 MG) 20.1 MCG/DAY Intrauterine Intrauterine device 03/29/23, 0 days, 0 refills - Nitrofurantoin Monohyd Macro 100 MG Oral Capsule Take one casule after intercourse, 30 days, 3 refills - VITAMIN Oral Tablet 0 days, 0 refills Past Medical/Surgical History Reported: LMP: 09/23/2023, Last pap smear date 03/22/2023 result: normal NEG HPV, Last mammogram date: 2013 NORMAL PER PT, and Contraception: partner with vasectomy. Surgical / Procedural: Surgical / procedural history. Exposure: Exposure to STD. : section delivery was one, 1, and para 1 having 1 section(s). Diagnoses: Allergic rhinitis spring allergies. Urinary tract infection. Cervical dysplasia--mild (GLEN I) 04/14/2021 Vaginitis. Depression Anxiety disorder NOS. SARS-associated coronavirus 02/2020 Procedural: - Human papilloma virus vaccine, quadrivalent Procedural: - Upper gastrointestinal endoscopy with removal of foreign body 1995 - swallowed a quarter Surgical: - Extraction of wisdom tooth - section 10/28/2014 -Girl Social History Tobacco use: No tobacco use and not a former smoker. Non-smoker. Smoking status: Never smoker. Alcohol: Alcohol use alcohol use: 2 drinks or less per day. Drug Use: Not using drugs. Never used drugs. 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 Sexual: Sexually active heterosexual [...] diagnosis of malignant neoplasm of ovary Maternal: Depression Anxiety disorder NOS Maternal Grandmother - lung cancer, heart attack Mom - leaky heart valve Paternal - Pacemaker Mom/Grandmother/Aunt had placenta previa Review Of Systems Systemic: No fever and no chills. Gastrointestinal: No nausea and no vomiting. Genitourinary: No hematuria and no increase in urinary frequency. No dysuria. Physical Findings - Vitals taken 10/19/2023 01:11 pm BP-Sitting L 116/74 mmHg BP Cuff Size Regular Temp-Temporal 98.2 F Height 71 in Weight 196 lbs Body Mass Index 27.3 kg/m2 Body Surface Area 2.1 m2 General Appearance: - Well developed. - Well nourished. - In no acute distress. Genitalia: External: - Genitalia showed no abnormalities. Pelvic: Vagina: - No vaginal discharge was observed. - No cystocele was observed. - No rectocele was observed. Cervix: - Showed no lesion . IUD strings noted. - Did not demonstrate pain elicited by motion. Assessment STI screening. Therapy - Clinical summary provided to patient. Discussed Behavioral factors that increase the risk of STI acquisition were discussed with patient. STI prevention based on five major strategies (1) Accurate risk assessment, with education and counseling of at-risk individuals on ways to avoid STIs, (2) Pre-exposure vaccination of individuals at risk for vaccine-preventable STIs, (3) Identification of both asymptomatic and symptomatic individuals with STIs, (4) Effective diagnosis, treatment, counseling, and follow-up of infected individuals, and (5)Evaluation, treatment, and counseling of sex partners of infected individuals were discussed with patient. Safe sex practices were reinforced at this visit. Notifying partners of positive STI results was encouraged to prevent further infection of the patient or others. Vaginal canal WNL. Reassurance given. Will also obtain HIV, RPR, and Hepatitis panel. Plan StartCited - Encntr screen for infections w sexl mode of transmiss Lab: CHLAMYDIA/GC/TRICH BY PCR Lab: HIV-1/2 ANTIBODY Lab: HEPATITIS PROFILE ACUTE Lab: SYPHILIS TREPSURE EIA W/ REFLEX TO TP-PA EndCited Follow-up as needed and annually.
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
--- OUTSIDE RECORDS SUMMARY | 2024-08-18 07:24 | XMS_ITS | Clinical Summary ---
Author Organization [facility] Address [address] [place] [phone] Phone Care Team Providers Care Physical Therapist Technician Name Role Phone MELA SmithRAGHAVENDRA Unavailable [phone] Reason for Visit and Chief Complaint Office Visit Problems Includes: Problems addressed during this encounter and other active Problems Current Visit Onset Date Resolved Date Provider Matt gonzalez Status History of Allergic Rhinitis 03/25/2014 Unknown ASTRID CHEW TRACK MANAGER Resolved Last Documented On 12/17/2014 3:26PM ; [facility] Note: was Closed. 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 - Last Documented On 07/12/2024 5:00PM ; [facility] Pending Tests Order Diagnosis Results Due Ordering P rovider Lab Recurrent Vaginitis (HTRx) 07/19/24 AMBREEN ROSS APRN Last Documented On 5 9:23AM ; [facility] Lab COMPREHENSIVE METABOLIC I 07/19/24 AMBREEN ROSS APRN Last Documented On 5 1:35PM ; [facility] Complete Blood Count w/Auto Diff AMBREEN ROSS APRN Last Documented On 5 1:35PM ; [facility] Lab HIV-1/2 ANTIBODY 07/19/24 AMBREEN REDDING TRACK MANAGER Last Documented On 5 1:35PM ; [facility] Lab HEPATITIS PROFILE ACUTE 07/19/24 Idania OLIVARES VANDANA TRACK MANAGER Last Documented On 5 1:35PM ; [facility] SYPHILIS TREPSURE EIA W/ REFLEX TO TP-PA 07/19/24 AMBREEN ROSS TRACK MANAGER Last Documented On 5 1:35PM ; [facility] Future Appointments Date Time Location Provi darion Yearly 04/08/2025 9:30AM [facility] OB-HARMONIC ANA[facility] [place] FARIAS TRACK MANAGER Last Documented On 4 9:59AM ; [facility] Assessments Includes: Assessments from this encounter Findings STI - Last Documented On 07/12/2024 5:00PM ; [facility] Enlarged lymphnode - Last Documented On 07/12/2024 5:00PM ; [facility] Medical Equipment - Implanted Devices Includes: Current Devices No Medical Equipment Recorded Medications Includes: Medications discussed during this encounter and other current Medications Current Medications (continue as prescribed) buPROPion HCl ER (XL) 150 MG Oral Tablet Extended Release 24 Hour 06/12/2024 - 12/09/2024 Provider: RAGHAVENDRA PLAZA M.D. Diagnosis: TAKE 1 TABLET BY MOUTH DAILY Last Documented On 06/12/2024 11:45AM By NELY MCGUIRE ; [facility], Liletta (52 MG) 20.1 MCG/DAY Intrauterine Intrau terine device 03/29/2023 Provider: Diagnosis: 03/29/23 Last Documented On 03/29/2023 4:15PM By MARCO CRAWFORD ; [facility] VITAMIN Oral Tablet 03/11/2020 Provider: Diagnosis: Last Documented On 03/11/2020 9:35AM By JET SAENZ ; [facility], Culturelle Oral Capsule 03/11/2020 Provider: Diagnosis: Last Documented On 03/11/2020 9:34AM By JET SAENZ ; [facility] Past Medications on file Ciprofloxacin HCl 500 MG Oral Tablet 07/16/2024 - 07/21/2024 Provider: AMBREEN Gonzalez Diagnosis: Acute vaginitis take tablet by mouth twice a day Last Documented On 07/16/2024 9:32AM By AMBREEN ROSS ; [facility], metroNIDAZOLE 500 MG Oral Tablet 07/16/2024 - 07/23/2024 Provider: AMBREEN Gonzalez Diagnosis: Acute vaginitis Take one tablet by mouth twi ce daily for 7 days. Avoid alcohol use with this medication. Last Documented On 07/16/2024 9:32AM By AMBREEN ROSS ; [facility], Valtrex 500 MG Oral Tablet 01/26/2023 - 07/25/2023 Pro vider: KADEEM FARIAS APRN Diagnosis: once a day Last Documented On 01/26/2023 12:48PM By NELY MCGUIRE ; [facility], Medications Administered Includes: Administered Medications from this encounter No Administered Medications Recorded Vital Signs Includes: Vital Signs from this encounter Vital Name 07/12/2024 10:06A Blood Pressure Sitting R 122/74 BP Cuff Size Large Temp-Temporal 97.5 Height (in) 71 Weight (lb) 183 Body Mass Index 25.5 Body Surface Area 2 Last Documented: On 07/12/2024 10:07A M ; [facility] Results Includes: Results discussed during this encounter No Results Recorded For Specified Dates History of Present Illness Includes: History of Present Illness from this encounter HPI LINDA GONG is a 33 year old female. - Allergy list reviewed - Medication list reviewed Linda presents to clinic with complaints of lump in left groin. States she noticed the lump this morning when she was showering. It is tender upon palpation. Denies redness or swelling to the area. Has not recently shaved the area recently. No changes to activity, heavy lifting, no injury. Denies fevers, chills, recent illness, abdominal pain, back pain, or vaginal symptoms. Currently has an active outbreak of herpes, has taken 4 doses of valacyclovir. Is sexually active with 1 partner, denies concern for STIs but would like to rule out today. Has been with this partner for about a year. 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 Documented On 5 10:05AM ; [facility] Alcohol use 03/17/2015 Last Documented On 5 10:05AM ; [facility] Sexually active 03/17/2015 Last Documented On 5 10:05AM ; [facility] Work history 03/17/2015 Last Documented On 5 10:05AM ; [facility] Smoking status : Never smoker 03/15/2014 Last Documented On 5 10:05AM ; [facility] Procedures and Surgical History Includes: Procedures from this encounter Procedures Code Diagnosis Performing Provider Service L ocation Service Date HTRX Swab HTRX Acute vaginitis AMBREEN ROSS APRN [facility] OB-HARMONIC ANALYST [place] 07/12/2024 Last Documented On 5 8:42PM ; [facility], Comprehensive Metabolic Panel [id number] Enlarged lymph nodes, unspecified AMBREEN ROSS TRACK MANAGER [facility] OB-HARMONIC ANALYST [place] 07/12/2024 Last Documented On 5 12:00PM ; [facility], Hepatitis Panel [id number] Enlarged lymph nodes, unspecified AMBREEN ROSS TRACK MANAGER [facility] OB-HARMONIC ANALYST [place] 07/12/2024 Last Documented On 5 12:00PM ; [facility], HIV-1 antigen, with HIV-1 & HIV-2 antibodies, single result [id number] Enlarged lymph nodes, unspecified AMBREEN ROSS APRN [facility] OB-HARMONIC ANALYST [place] 07/12/2024 Last Documented On 5 12:00PM ; [facility], Syphilis Treponemal Total Ab with Reflex to TP-PA [id number] Enlarged lymph nodes, unspecified AMBREEN ROSS APRN [facility] OB-HARMONIC ANALYST [place] 07/12/2024 Last Documented On 5 12:00PM ; [facility] CBC with Automated differential WBC Count [id number] Enlarged lymph nodes, unspecified AMBREEN VANDANA COOL [facility] OB-HARMONIC ANALYST [place] 07/12/2024 Last Documented On 5 12:00PM ; [facility] Collection of venous blood by venipuncture [id number] Enlarged lymph nodes, unspecified AMBREEN VANDANA COOL [facility] OB-HARMONIC ANALYST [place] 07/12/2024 Last Documented On 5 12:00PM ; [facility] Surgical History Last Updated Surgical / procedural history 03/17/2015 Last Documented On 5 10:05AM ; [facility] Medical History Includes: Medical History addressed during this encounter Description Last Updated Last pap smear date 04/03/2024 5 Last Documented On 5 5:00PM ; [facility] LMP: None due to IUD 07/12/2024 Last Documented On 5 5:00PM ; [facility] History of dental implant 04/03/2024 Last Documented On 5 10:05AM ; [facility] Result: normal NEG HPV 03/22/2023 Last Documented On 5 10:05AM ; [facility] Last mammogram date: 2013 NORMAL PER PT 03/22/2023 Last Documented On 5 10:05AM ; [facility] History of Cervical dysplasia--mild (GLEN I) 04/14/2021 04/22/2021 Last Documented On 5 10:05AM ; [facility] Exposure to STD 04/24/2020 Last Documented On 5 10:05AM ; [facility] History of SARS-associated coronavirus 03/11/2020 Last Documented On 5 10:05AM ; [facility] section was one 10/07/2017 Last Documented On 5 10:05AM ; [facility] History of extraction of wisdom tooth Last Documented On 5 10:05AM ; [facility] History of anxiety disorder NOS 10/08/19 18 Last Documented On 5 10:05AM ; [facility] History of depression 10/07/2017 Last Documented On 5 10:05AM ; [facility] History of urinary tract infection 10/07 Last Documented On 5 10:05AM ; [facility] History of vaginitis 10/07/2017 Last Documented On 5 10:05AM ; [facility] Para 1 03/17/2015 Last Documented On 5 10:05AM ; [facility] section 10/28/2014 -Girl 015 Last Documented On 5 10:05AM ; [facility] History of allergic rhinitis spring gio rgies 03/25/2014 Last Documented On 5 10:05AM ; [facility] Human papilloma virus vaccine, quadrival ent 03/15/2014 Last Documented On 5 10:05AM ; [facility] 1 03/15/2014 Last Documented On 5 10:05AM ; [facility] Family History Includes: Family History addressed during this encounter Description Last Updated Paternal aunt's history of breast cancer 04/03/2024 Last Documented On 5 10:05AM ; [facility] Maternal grandmother's history of osteop orosis 04/03/2024 Last Documented On 5 10:05AM ; [facility] Maternal history of valvular heart disea se 04/03/2024 Last Documented On 5 10:05AM ; [facility] Maternal grandmother's history of myocar dial infarction 04/03/2024 Last Documented On 5 10:05AM ; [facility] Maternal grandmother's history of lung c ancer 04/03/2024 Last Documented On 5 10:05AM ; [facility], Maternal history of anxiety disorder NOS 10/07/2017 Last Documented On 5 10:05AM ; [facility], Maternal history of depression 8 Last Documented On 5 10:05AM ; [facility], No family history of malignant neoplasm of large intestine 03/17/2015 Last Documented On 5 10:05AM ; [facility], Maternal Grandmother - lung cancer, heart attack ~Mom - leaky heart valve ~Paternal - Pacemaker ~Mom/Grandmother/Aunt had placenta previa 03/15/2014 Last Documented On 5 10:05AM ; [facility], No family history of diabetes mellitus 1 Last Documented On 5 10:05AM ; [facility], No family history of malignant female br east neoplasm 03/15/2014 Last Documented On 5 10:05AM ; [facility], No family history of malignant neoplasm of the ovary 03/15/2014 Last Documented On 5 10:05AM ; [facility], Review of Systems Includes: Review of Systems from this encounter All systems reviewed and negative except per HPI. Mental Status Includes: Mental Status from this [...] Active Last Documented On 5 10:07AM ; [facility] Ibuprofen Allergy Skin Rashes / Er uption of skin, Hives / Urticaria 11/15/2014 Active Last Documented On 5 10:07AM ; [facility], Encounters Encounter Provider Location Date Check-In Time Check-Out Time Diagnosis Office Visit AMBREEN ROSS APRN [facility] OB-HARMONIC ANALYST [place] 10:00AM 10:34AM Insurance Includes: Active Insurance Policies Plan Name Member ID Group # Subscriber Relationship Effect deisy Dates 1 - [facility] [id number] 113 LINDA GONG Self 09/28/2021 - U nknown Clinical Notes Includes: Clinical Notes from this encounter * Progress note Date Encounter Last Documented by 07/12/2024 Office Visit Last documented on 07/12/2024; 5:00 PM, AMBREEN VANDANA COOL; [facility], Active Problems & Conditions - 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 - Allergy list reviewed - Medication list reviewed Linda presents to clinic with complaints of lump in left groin. States she noticed the lump this morning when she was showering. It is tender upon palpation. Denies redness or swelling to the area. Has not recently shaved the area recently. No changes to activity, heavy lifting, no injury. Denies fevers, chills, recent illness, abdominal pain, back pain, or vaginal symptoms. Currently has an active outbreak of herpes, has taken 4 doses of valacyclovir. Is sexually active with 1 partner, denies concern for STIs but would like to rule out today. Has been with this partner for about a year. Current Medication - buPROPion HCl ER (XL) 150 MG Oral Tablet Extended Release 24 Hour TAKE 1 TABLET BY MOUTH DAILY, 30 days, 5 refills - Culturelle Oral Capsule 0 days, 0 refills - Liletta (52 MG) 20.1 MCG/DAY Intrauterine Intrauterine device 03/29/23, 0 days, 0 refills - VITAMIN Oral Tablet 0 days, 0 refills Past Medical/Surgical History Reported: LMP: None due to IUD, Last pap smear date 04/03/2024 result: normal NEG HPV, and Last mammogram date: 2013 NORMAL PER PT. Surgical / Procedural: Surgical / procedural history. Exposure: Exposure to STD. : section delivery was one, 1, and para 1. Diagnoses: Allergic rhinitis spring allergies. Urinary tract infection. Cervical dysplasia--mild (GLEN I) 04/14/2021 Vaginitis. Depression Anxiety disorder NOS. SARS-associated coronavirus 02/2020 Procedural: - Human papilloma virus vaccine, quadrivalent Procedural: - Dental implant Surgical: - Extraction of wisdom tooth - section 10/28/2014 -Girl Social History Tobacco use: Smoking status: Never smoker. Alcohol: Alcohol use. Drug Use: Never used drugs. 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 Sexual: Sexually active. Allergies - Ibuprofen Reaction: , Hives / [...] Osteoporosis Lung cancer Paternal aunt's: Breast cancer Maternal Grandmother - lung cancer, heart attack Mom - leaky heart valve Paternal - Pacemaker Mom/Grandmother/Aunt had placenta previa Review Of Systems All systems reviewed and negative except per HPI. Physical Findings - Vitals taken 07/12/2024 10:06 am BP-Sitting R 122/74 mmHg BP Cuff Size Large Temp-Temporal 97.5 F Height 71 in Weight 183 lbs Body Mass Index 25.5 kg/m2 Body Surface Area 2 m2 General appearance: NAD, conversational Eyes: anicteric sclerae, moist conjunctivae; no lid-lag; PERRLA HEENT: Atraumatic; oropharynx clear with moist mucous membranes and no mucosal ulcerations; normal hard and soft palate Neck: Trachea midline; FROM, supple, no thyromegaly or lymphadenopathy Lungs: CTA, with normal respiratory effort and no intercostal retractions CV: RRR, no Murmurs Pelvic Exam: Normal external genitalia, urethra normal, labia normal, BUS WNL, vaginal vault is most and rugae present, cervix is entirely visualized and is normal without lesion, vagina has normal physiologic discharge, no lesions noted, on bimanual examination the uterus is normal size, non tender and mobile, adenxa are normal without tenderness, negative CMT. 1cm tender nodule palpated in left groin. No redness or swelling to the area. Rectal: WNL Extremities: No peripheral edema or extremity lymphadenopathy Skin: Normal temperature, turgor and texture; no rash, ulcers or subcutaneous nodules Psych: Appropriate affect, alert and oriented to person, place and time Tests Health track swab Assessment STI Enlarged lymphnode Discussed -Nodule likely enlarged lymph node related to active herpes outbreak -Instructed to continue outbreak treatment with valacyclovir -Health track swab obtained to rule out infection and STIs -Will draw CBC, CMP, HIV, hepatitis panel and RPR -Recommend warm compresses to the area for pain relief. Okay to take tylenol and ibuprofen -Recommend follow-up in 1-2 weeks if lymph node remains enlarged Plan StartCited - Acute vaginitis Lab: Recurrent Vaginitis (HTRx) EndCited StartCited - Enlarged lymph nodes, unspecified Lab: COMPREHENSIVE METABOLIC I Lab: Complete Blood Count w/Auto Diff Lab: HIV-1/2 ANTIBODY Lab: HEPATITIS PROFILE ACUTE Lab: SYPHILIS TREPSURE EIA W/ REFLEX TO TP-PA EndCited -Will notify patient of lab results once received -Will follow-up if symptoms do not resolve or improve.
--- OUTSIDE RECORDS SUMMARY | 2024-08-18 07:24 | XMS_ITS ---
Author Organization [facility] Address [address] [facility] [address] [place] [phone] Phone Care Team Providers Care Hod Carrier Name Role Phone MELA Smith, RAGHAVENDRA Emerson Unavailable [phone] Problems Includes: Active, inactive, and resolved Problems All Visits Onset Date Resolved Date Provider Condition S tatus Anxiety Disorder of Unknown ([place] III) Etiology 03/16/2021 MACK MILLS MSN, CNM Active Last Documented On 1 10:35AM ; [facility] Iud Insertion 12/19/2014 MACK MILLS MSN, CNM Inactive Last Documented On 07/04/2018 12:57PM ; [facility] Note: Unchanged History of Allergic Rhinitis 03/25/2014 Unknown ASTRID CHEW APRN Resolved Last Documented On 12/17/2014 3:26PM ; [facility] Note: was Closed. History of Neurologic Disorders 03/25/2014 Unknown ASTRID CHEW APRN Resolved Last Documented On 12/17/2014 3:26PM ; [facility] Note: was Closed. Plan of Treatment Findings Encounter Date Ordered follow-up visit 1 ye ar or as needed Yearly with KADEEM GONZALES APRN 04/03/2024 Last Documented On 4 11:35AM ; [facility] Follow-up as needed and annually Office Visit jose luis ROPER PA-C 10/19/2023 Last Documented On 4 3:01PM ; [facility] Ordered cervical Pap smear (collected) Yearly wi th RAGHAVENDRA PLAZA M.D. 03/22/2023 Last Documented On 3 2:35PM ; [facility] Ordered follow-up visit 1 ye ar or as needed Yearly with RAGHAVENDRA PLAZA M.D. 03/22/2023 Last Documented On 3 2:35PM ; [facility] Ordered cervical Pap smear (collected) Yearly [facility] RAGHAVENDRA PLAZA M.D. 03/18/2022 Last Documented On 2 3:38PM ; [facility] Ordered follow-up visit 1 ye ar or as needed Yearly with RAGHAVENDRA PLAZA M.D. 03/18/2022 Last Documented On 2 3:38PM ; [facility] Ordered a urine culture Office Visit with MIKE PLAZA M.D. 01/12/2021 Last Documented On 1 3:30PM ; [facility] Ordered urinalysis Office Visit with RAGHAVENDRA FARLEY M.D. 01/12/2021 Last Documented On 1 3:30PM ; [facility] Follow-up as needed or if sy mptoms do not improve after treatment Office Visit with LEATHA ROPER PA-C 08/12/2020 Last Documented On 1 3:13PM ; [facility] Ordered follow-up visit 1 ye ar or as needed Yearly with RAGHAVENDRA PLAZA M.D. 03/11/2020 Last Documented On 0 9:53AM ; [facility] Ordered follow-up visit 1 ye ar or as needed Yearly with RAGHAVENDRA PLAZA M.D. 01/29/2019 Last Documented On 9 9:51AM ; [facility] Ordered follow-up visit 1 ye ar or as needed Yearly with RAGHAVENDRA PLAZA M.D. 03/17/2016 Last Documented On 6 10:38AM ; [facility] Ordered cervical Pap smear (collected) Yearly [facility] RAGHAVENDRA PLAZA M.D. 03/17/2015 Last Documented On 5 12:14PM ; [facility] Ordered follow-up visit 1 ye yuni or as needed Yearly with RAGHAVENDRA PLAZA M.D. 03/17/2015 Last Documented On 5 12:14PM ; [facility] Pending Tests Order Diagnosis Results Due Ordering P julio cesar Lab URINALYSIS (W/ MICRO SCOPIC) ([id number]) 03/22/14 [facility] Last Documented On 4 12:16PM ; [facility] Lab CULTURE, URINE ([id number]) 03/22/14 [facility] OFF[facility]AR[facility] KN Last Documented On 4 12:16PM ; [facility] Lab HIV 1/2 EVALUATION W / REFLEX TO CONFIRMATION ([id number]) 04/01/14 [facility]ACH[facility]BEAR[facility] KN Last Documented On 4 12:57PM ; [facility] Lab OB PANEL W/ REFLEX ([id number]) 04/01/14 [facility]ACH[facility] OFFBEAR[facility] KN Last Documented On 4 12:57PM ; [facility] Lab VARICELLA-ZOSTER VIRUS, IGG ([id number]) 04/01/14 [facility]ACH[facility] OFFBEAR[facility] KN Last Documented On 4 12:57PM ; [facility] Lab URINALYSIS (W/ MICROSCOPIC) ([id number]) 04/01/14 [facility]BEAR[facility] KN Last Documented On 4 12:57PM ; [facility] Lab CULTURE, URINE ([id number]) 04/01/14 [facility]AR[facility] KN Last Documented On 4 12:57PM ; [facility] Lab PAP THINPREP SCRN W/ RFX HR HPV ([id number]) 04/01/14 [facility]AR[facility] KN Last Documented On 4 12:57PM ; [facility] Lab [facility] ([id number] ) 06/03/14 [facility]ACH[facility] OFFBEAR[facility] KN Last Documented On 4 4:50PM ; [facility] Lab CBC W/ AUTO DIFF ([id number]) 08/15/14 [facility]AR[facility] KN Last Documented On 5 4:03PM ; [facility] Lab GESTATIONAL DIABETIC SCREEN ([id number]) 08/15/14 [facility] Last Documented On 5 4:03PM ; [facility] Lab CULTURE, GROUP B STREPTOCOCCUS ([id number]) 10/10/14 [facility] Last Documented On 5 3:26PM ; [facility] Future Appointments Date Time Location Provi darion Yearly 04/08/2025 9:30AM [facility] Yared GONZALES MACHINE SORTER Last Documented On 4 9:59AM ; [facility] Instructions to patient Instructions for patient : B reast Self Exam discussed Last Documented On 4 11:27AM ; [facility] Instructions for patient Ble eding and spotting may occur for the next 3 months. She will call for any foul smelling vaginal discharge. She will use back up control x 2 weeks Last Documented On 3 4:12PM ; [facility] Instructions for patient : B reast Self Exam discussed Last Documented On 3 2:32PM ; [facility] Instructions for patient : B reast Self Exam discussed Last Documented On 2 3:36PM ; [facility] Instructions for patient : t he patient was instructed in the use and possible side effects of the medication prescribed. She is to maintain good hydration via p.o. fluids. We also discussed possible triggers for UTI and preventive measures. Due to recurrent nature will start some suppression Tx for a period of time. Re assess at annual in fall Last Documented On 1 3:29PM ; [facility] Instructions for patient : M edication use and side effects discussed. The patient was also instructed not to douch.~ Last Documented On 1 3:12PM ; [facility] Instructions for patient : B reast Self Exam discussed Last Documented On 0 9:50AM ; [facility] Instructions for patient Ble eding and spotting may occur for the next 3 months. She will call for any foul smelling vaginal discharge Last Documented On 9 9:48AM ; [facility] Instructions for patient : B reast Self Exam discussed Last Documented On 9 9:33AM ; [facility] Instructions for patient : B reast Self Exam discussed Last Documented On 6 10:33AM ; [facility] Instructions for patient : B reast Self Exam discussed Last Documented On 5 12:11PM ; [facility] Instructions for patient Ble eding and spotting may occur for the next 3 months. She will call for any foul smelling vaginal discharge Last Documented On 5 1:47PM ; [facility] Instructions for patient Ble eding and spotting may occur for the next 3 months. She will call for any foul smelling vaginal discharge Last Documented On 5 10:16AM ; [facility] Education and Decision Aids were provided during visit for: INFORMED CONSENT DISCUSSION: Colposcopy was discussed in detail including risk of post procedure bleeding. Patient is not to have intercourse for 5 days following the procedure. Patient expressed understanding of the above and consented to the procedure Last Documented On 1 5:56PM ; [facility] Assessments Includes: Assessments for all patient encounters Findings Encounter Date Assess fatigue Yearly with KADEEM GONZALES APRN 04/03/2024 Last Documented On 4 11:35AM ; [facility] Routine pelvic exam WELL WOMEN VISIT Yearly with KADEEM GONZALES APRN 04/03/2024 Last Documented On 4 11:35AM ; [facility] STI screening Office Visit with LEATHA ROPER PA-C 10/19/2023 Last Documented On 4 3:01PM ; [facility] [Encounter for screening for infections with a predominantly sexual mode of transmission] assessment of visit for: screening for STD IUD Insert with KADEEM GONZALES MACHINE SORTER 03/29/2023 Last Documented On 3 4:15PM ; [facility] IUD Insertion IUD Insert with KADEEM GONZALES MACHINE SORTER 03/29/2023 Last Documented On 3 4:15PM ; [facility] Routine pelvic exam WELL WOMEN VISIT Yearly with RAGHAVENDRA PLAZA M.D. 03/22/2023 Last Documented On 3 2:35PM ; [facility] Vulvar lesion STI screen Office Visit with ELIZABETH MILLS MSN, CNM 11/12/2022 Last Documented On 3 1:21PM ; [facility] Routine pelvic exam WELL WOMEN VISIT Yearly with RAGHAVENDRA PLAZA M.D. 03/18/2022 Last Documented On 2 3:38PM ; [facility] Cervical dysplasia--mild (GLEN I) Office Visit [facility] RAGHAVENDRA PLAZA M.D. 09/28/2021 Last Documented On 2 9:03AM ; [facility] Cervical dysplasia--mild (GLEN I) Office Visit [facility] RAGHAVENDRA PLAZA M.D. 04/21/2021 Last Documented On 1 3:42PM ; [facility] Anxiety Yearly with MAKC MILLS MSN, CNM 03/16/2021 Last Documented On 1 10:47AM ; [facility] Routine pelvic exam WELL WOMEN VISIT Yearly with MACK MILLS MSN, CNM 03/16/2021 Last Documented On 1 10:47AM ; [facility] Urinary tract infection Office Visit with MIKE PLAZA M.D. 01/12/2021 Last Documented On 1 3:30PM ; [facility] Urinary tract infection Office Visit with SAMEER MILLS MSN, CNM 10/07/2020 Last Documented On 1 2:40PM ; [facility] Vaginitis Office Visit with LEATHA ROPER PA-C 08/12/2020 Last Documented On 1 3:13PM ; [facility] Vaginitis Office Visit with RAGHAVENDRA DAMON M.D. 07/01/2020 Last Documented On 1 1:43PM ; [facility] Bacterial vaginosis Office Visit with RAGHAVENDRA PLAZA M.D. 06/17/2020 Last Documented On 1 10:09AM ; [facility] Endometritis Office Visit with RAGHAVENDRA DAMON M.D. 06/17/2020 Last Documented On 1 10:09AM ; [facility] Exposure to Communicable dis ease/STD Screening Office Visit with MACK ESCALANTE, ADRIEL 04/24/2020 Last Documented On 0 2:38PM ; [facility] Routine pelvic exam WELL WOMEN VISIT Yearly with RAGHAVENDRA PLAZA M.D. 03/11/2020 Last Documented On 0 9:53AM ; [facility] Fatigue Office Visit with RAGHAVENDRA DAMON M.D. 04/17/2019 Last Documented On 9 9:57AM ; [facility] Fatigue IUD Insert with RAGHAVENDRA PLAZA M.D. 03/06/2019 Last Documented On 9 9:50AM ; [facility] IUD Insertion IUD Insert with RAGHAVENDRA PLAZA M.D. 03/06/2019 Last Documented On 9 9:50AM ; [facility] Routine pelvic exam WELL WOMEN VISIT Yearly with RAGHAVENDRA PLAZA M.D. 01/29/2019 Last Documented On 9 9:51AM ; [facility] Anxiety Yearly with MACK ESCALANTE CNM 10/07/2017 Last Documented On 8 1:05PM ; [facility] Assess acne Yearly with MACK ESCALANTE, ADRIEL 10/07/2017 Last Documented On 8 1:05PM ; [facility] Routine pelvic exam WELL WOMEN VISIT Yearly with MACK ESCALANTE, JEFFERYM 10/07/2017 Last Documented On 8 1:05PM ; [facility] Bacterial vaginosis Office Visit with RAGHAVENDRA PLAZA M.D. 10/22/2016 Last Documented On 7 1:44PM ; [facility] Marybel albicans vulvovaginitis Office Visit wit h RAGHAVENDRA PLAZA M.D. 10/22/2016 Last Documented On 7 1:44PM ; [facility] Routine pelvic exam WELL WOMEN VISIT Yearly with RAGHAVENDRA PLAZA M.D. 03/17/2016 Last Documented On 6 10:38AM ; [facility] Routine pelvic exam WELL WOMEN VISIT Yearly with RAGHAVENDRA PLAZA M.D. 03/17/2015 Last Documented On 5 12:14PM ; [facility] Assessment of checking intra uterine device (IUD) RECHECK with ASTRID CHEW MACHINE SORTER 01/16/2015 Last Documented On 5 1:48PM ; [facility] IUD Insertion PROCEDURE with ASTRID CHEW MACHINE SORTER 12/19/2014 Last Documented On 5 10:18AM ; [facility] New Patient with ASTRID Gilmore MACHINE SORTER 03/15/2014 Last Documented On 4 1:31PM ; [facility] Instructions Includes: Instructions for all patient encounters Instructions to patient Instructions for patient : B reast Self Exam discussed Last Documented On 4 11:27AM ; [facility] Instructions for patient Ble eding and spotting may occur for the next 3 months. She will call for any foul smelling vaginal discharge. She will use back up control x 2 weeks Last Documented On 3 4:12PM ; [facility] Instructions for patient : B reast Self Exam discussed Last Documented On 3 2:32PM ; [facility] Instructions for patient : B reast Self Exam discussed Last Documented On 2 3:36PM ; [facility] Instructions for patient : t he patient was instructed in the use and possible side effects of the medication prescribed. She is to maintain good hydration via p.o. fluids. We also discussed possible triggers for UTI and preventive measures. Due to recurrent nature will start some suppression Tx for a period of time. Re assess at annual in fall Last Documented On 1 3:29PM ; [facility] Instructions for patient : M edication use and side effects discussed. The patient was also instructed not to douch.~ Last Documented On 1 3:12PM ; [facility] Instructions for patient : B reast Self Exam discussed Last Documented On 0 9:50AM ; [facility] Instructions for patient Ble eding and spotting may occur for the next 3 months. She will call for any foul smelling vaginal discharge Last Documented On 9 9:48AM ; [facility] Instructions for patient : B reast Self Exam discussed Last Documented On 9 9:33AM ; [facility] Instructions for patient : B reast Self Exam discussed Last Documented On 6 10:33AM ; [facility] Instructions for patient : B reast Self Exam discussed Last Documented On 5 12:11PM ; [facility] Instructions for patient Ble eding and spotting may occur for the next 3 months. She will call for any foul smelling vaginal discharge Last Documented On 5 1:47PM ; [facility] Instructions for patient Ble eding and spotting may occur for the next 3 months. She will call for any foul smelling vaginal discharge Last Documented On 5 10:16AM ; [facility] Education and Decision Aids were provided during visit for: INFORMED CONSENT DISCUSSION: Colposcopy was discussed in detail including risk of post procedure bleeding. Patient is not to have intercourse for 5 days following the procedure. Patient expressed understanding of the above and consented to the procedure Last Documented On 1 5:56PM ; [facility] Medical Equipment - Implanted Devices Includes: Current and historical Devices No Medical Equipment Recorded Medications Includes: Current and historical Medications Current Medications (continue as prescribed) buPROPion HCl ER (XL) 150 MG Oral Tablet Extended Release 24 Hour 06/12/2024 - 12/09/2024 Provider: RAGHAVENDRA PLAZA M.D. Diagnosis: TAKE 1 TABLET BY MOUTH DAILY Last Documented On 06/12/2024 11:45AM By NELY MCGUIRE ; [facility] Liletta (52 MG) 20.1 MCG/DAY Intrauterine Intrau terine device 03/29/2023 Provider: Diagnosis: 03/29/23 Last Documented On 03/29/2023 4:15PM By MARCO CRAWFORD ; [facility] VITAMIN Oral Tablet 03/11/2020 Provider: Diagnosis: Last Documented On 03/11/2020 9:35AM By JET SAENZ ; [facility] Culturelle Oral Capsule 03/11/2020 Provider: Diagnosis: Last Documented On 03/11/2020 9:34AM By JET SAENZ ; [facility] Past Medications on file Ciprofloxacin HCl 500 MG Oral Tablet 07/16/2024 - 07/21/2024 Provider: AMBREEN ROSS APR N Diagnosis: Acute vaginitis take tablet by mouth twice a day Last Documented On 07/16/2024 9:32AM By AMBREEN ROSS ; [facility] metroNIDAZOLE 500 MG Oral Tablet 07/16/2024 - 07/23/2024 Provider: AMBREEN Gonzalez Diagnosis: Acute vaginitis Take one tablet by mouth twi ce daily for 7 days. Avoid alcohol use with this medication. Last Documented On 07/16/2024 9:32AM By AMBREEN ROSS ; [facility] Nitrofurantoin Monohyd Macro 100 MG Oral Capsule 12/22/2023 - 04/03/2024 Provider: MACK ESCALANTE, CNM Diagnosis: Anxiety disorder , unspecified TAKE 1 CAPSULE BY MOUTH AFTER INTERCOURSE Last Documented On 04/03/2024 9:22AM By ARGENTINA GERARD ; [facility] 06/25 1-20 MG-MCG Oral Tablet 08/16/2023 - 04/03/2024 Provider: MACK GRULLON, CNM Diagnosis: once a day Last Documented On 04/03/2024 9:25AM By ARGENTINA GERARD ; [facility] Ciprofloxacin HCl 500 MG Ora l Tablet 04/21/2023 - 08/16/2023 Provider: MACK GRULLON, CNM Diagnosis: twice a day Last Documented On 08/16/2023 9:18AM By MARCO CRAWFORD ; [facility] buPROPion HCl ER (XL) 150 MG Oral Tablet Extended Release 24 Hour 03/22/2023 - 06/12/2024 Provider: RAGHAVENDRA PLAZA M.D. Diagnosis: TAKE 1 TABLET BY MOUTH DAILY Last Documented On 06/12/2024 11:34AM By NELY MCGUIRE ; [facility] buPROPion HCl ER (XL) 150 MG Oral Tablet Extended Release 24 Hour 02/28/2023 - 03/22/2023 Provider: RAGHAVENDRA PLAZA M.D. Diagnosis: TAKE 1 TABLET BY MOUTH DAILY Last Documented On 03/22/2023 2:35PM By RAGHAVENDRA PLAZA ; [facility] buPROPion HCl ER (XL) 150 MG Oral Tablet Extended Release 24 Hour 01/31/2023 - 02/28/2023 Provider: RAGHAVENDRA PLAZA M.D. Diagnosis: TAKE 1 TABLET BY MOUTH DAILY Last Documented On 02/28/2023 12:34PM By NELY MCGUIRE ; [facility] Valtrex 500 MG Oral Tablet 01/26/2023 - 07/25/2023 Pro vider: KADEEM GONZALES APRN Diagnosis: once a day Last Documented On 01/26/2023 12:48PM By NELY MCGUIRE ; [facility] Azithromycin 500 MG Oral Tablet 11/22/2022 - 03/22/2023 Provider: MACK GRULLON, CNM Diagnosis: as directed Take 2 tabs on d ay one then one tab on days 2-4 Last Documented On 03/22/2023 10:03AM By KADEEM SPARKS ; [facility] valACYclovir HCl 500 MG Oral Tablet 11/15/2022 - 03/22/2023 Provider: MACK GRULLON, CNM Diagnosis: twice a day Last Documented On 03/22/2023 10:03AM By KADEEM SPARKS ; [facility] Nitrofurantoin Monohyd Macro 100 MG Oral Capsule 10/13/2022 - 12/22/2023 Provider: MACK ESCALANTE, JEFFERYM Diagnosis: Anxiety disorder , unspecified Take one casule after intercourse Last Documented On 12/22/2023 10:13AM By RADHA MILLS ; [facility] buPROPion HCl ER (XL) 150 MG Oral Tablet Extended Release 24 Hour 10/13/2022 - 01/31/2023 Provider: RAGHAVENDRA PLAZA M.D. Diagnosis: TAKE 1 TABLET BY MOUTH DAILY Last Documented On 01/31/2023 8:11AM By BRYAN DIXON ; [facility] buPROPion HCl ER (XL) 150 MG Oral Tablet Extended Release 24 Hour 08/27/2022 - 10/13/2022 Provider: RAGHAVENDRA PLAZA M.D. Diagnosis: TAKE 1 TABLET BY MOUTH DAILY Last Documented On 10/13/2022 12:50PM By BRYAN DIXON ; [facility] buPROPion HCl ER (XL) 150 MG Oral Tablet Extended Release 24 Hour 06/18/2022 - 08/27/2022 Provider: RAGHAVENDRA PLAZA M.D. Diagnosis: TAKE 1 TABLET BY MOUTH DAILY Last Documented On 08/27/2022 8:16AM By BRYAN DIXON ; [facility] Wellbutrin XL 150 MG Oral Tablet Extended Release 24 Hour 03/18/2022 - 06/18/2022 Provider: RAGHAVENDRA PLAZA M.D. Diagnosis: once a day Last Documented On 06/18/2022 12:45PM By NELY MCGUIRE ; [facility] Sertraline HCl 50 MG Oral Tablet 06/23/2021 - 11/12/2022 Provider: JEFFERY OZUNAM Diagnosis: Anxiety disorder , unspecified TAKE 1 TABLET BY MOUTH ONCE DAILY Last Documented On 11/12/2022 8:59AM By CLARISA ROSS ; [facility] Sertraline HCl 50 MG Oral Tablet 06/23/2021 - 06/23/2021 Provider: MACK ESCALANTE, JEFFERYM Diagnosis: Anxiety disorder , unspecified TAKE 1 TABLET BY MOUTH ONCE DAILY Last Documented On 06/23/2021 11:25AM By RADHA MILLS ; [facility] Sertraline HCl 50 MG Oral Tablet 04/20/2021 - 06/23/2021 Provider: MACK MILLS MSN, CNM Diagnosis: Anxiety disorder , unspecified TAKE 1 TABLET BY MOUTH ONCE DAILY Last Documented On 06/23/2021 10:37AM By ANEL AMARO ; [facility] [facility], Sertraline HCl 50 MG Oral Tablet 03/16/2021 - 04/20/2021 Provider: MACK MILLS MSN, CNM Diagnosis: Anxiety disorder , unspecified once a day Last Documented On 04/20/2021 8:31AM By ANEL AMARO ; [facility], Nitrofurantoin Monohyd Macro 100 MG Oral Capsule 03/16/2021 - 10/13/2022 Provider: MACK MILLS MSN, CNM Diagnosis: Anxiety disorder , unspecified Take one casule after intercourse Last Documented On 10/13/2022 12:50PM By BRYAN DIXON ; [facility], Boric Acid 600 mg Vaginal Suppository 03/16/2021 - 03/22/2023 Provider: JEFFERY LARIOSM Diagnosis: as directed insert 1 supp PV q hs x 14 nights then twice weekly Last Documented On 03/22/2023 10:03AM By KADEEM SPARKS ; [facility] IN[employer], COVID-19 mRNA Vacc (Moderna) 100 MCG/0.5ML Intramuscular Suspension 01/12/2021 - 03/29/2023 Provider: Diagnosis: Last Documented On 03/29/2023 3:25PM By MARCO CRAWFORD ; [facility] Macrodantin 50 MG Oral Capsule 01/12/2021 - 03/16/2021 Provider: RAGHAVENDRA PLAZA M.D. Diagnosis: Dysuria 1 every bedtime, start next week after the Macrobid Rx Last Documented On 03/16/2021 9:32AM By JET SAENZ ; [facility] IN[employer]CTOR, Macrobid 100 MG Oral Capsule 01/12/2021 - 03/16/2021 Karen harrell: RAGHAVENDRA PLAZA M.D. Diagnosis: Dysuria twice a day Last Documented On 03/16/2021 9:32AM By JET SAENZ ; [facility] INSTRUCTOR, Nitrofurantoin Monohyd Macro 100 MG Oral Capsule 10/07/2020 - 01/12/2021 Provider: MACK MILLS MSN, CNM Diagnosis: Urinary tract infection, site not specified twice a day Last Documented On 01/12/2021 2:20PM By JET SAENZ ; [facility] INSTRUCTOR, metroNIDAZOLE 500 MG Oral Tablet 08/13/2020 - 10/08/19 Provider: LEATHA ROPER PA-C Diagnosis: twice a day. Avoid alcohol o r intercourse while on medication. Last Documented On 10/07/2020 12:08PM By JET SAENZ ; [facility] INSTRUCTOR, Clindamycin Phosphate 2% Vag inal Cream 08/13/2020 - 10/07/2020 Provider: LEATHA Xiong Diagnosis: 1 every bedtime for 14 days. Avoid intercourse while on medication. Start this after finishing oral metronidazole. Last Documented On 10/07/2020 12:08PM By JET SAENZ ; [facility] INSTRUCTOR, Boric Acid 600 mg Vaginal Suppository 07/01/2020 - 03/16/2021 Provider: RAGHAVENDRA PLAZA M.D. Diagnosis: as directed insert 1 supp PV twice weekly Last Documented On 03/16/2021 10:43AM By RADHA MILLS ; [facility] INSTRUCTOR, Doxycycline Hyclate 100 MG Oral Capsule 06/17/2020 - 07/01/2020 Provider: RAGHAVENDRA PLAZA M.D. Diagnosis: twice a day Last Documented On 07/01/2020 11:49AM By JET SAENZ ; [facility], PC metroNIDAZOLE 250 MG Oral Tablet 06/17/2020 - 07/01/2020 Provider: RAGHAVENDRA PLAZA M.D. Diagnosis: three times a day Last Documented On 07/01/2020 11:49AM By JET SAENZ ; [facility], PC GAS SUBSTATION OPERATOR Thyroid 30MG Oral Tablet 04/17/2019 - 07/20/2019 Provider: RAGHAVENDRA PLAZA M.D. Diagnosis: Other fatigue 1 every morningOn an empty s tomach, do not eat for 30 minutes Last Documented On 07/20/2019 3:00PM By CLARISA ROSS ; [facility] IN[facility], [facility] GAS SUBSTATION OPERATOR Thyroid 30MG Oral Tablet 03/08/2019 - 04/17/2019 Pr ovider: RAGHAVENDRA PLAZA M.D. Diagnosis: 1 every morningOn an empty s tomach, do not eat for 30 minutes Last Documented On 04/17/2019 9:36AM By NU GO ; [facility], PC Liletta (52 MG) 19.5MCG/DAY Intrauterine Intrauterine device 03/06/2019 - 03/11/2020 Provider: Diagnosis: INSERTED BY WK ON 03/06/19 Last Documented On 03/11/2020 9:34AM By JET SAENZ ; [facility], [facility] Terazol 7 0.4% Vaginal Cream 08/07/2018 - 01/29/2019 Provider: MACK GRULLON CNM Diagnosis: as directed 1 applicator q hs x 7 nights Last Documented On 01/29/2019 3:09PM By FRANNIE APODACA ; [facility], [facility] Fluconazole 150MG Oral Tablet 07/06/2018 - 01/29/2019 Provider: MACK GRULLON CNM Diagnosis: as directed Take one tab po. Repeat dose in 3 da ys Last Documented On 01/29/2019 3:09PM By FRANNIE APODACA ; [facility], [facility] Spironolactone 50MG Oral Tablet 01/16/2018 - 01/29/2019 Provider: KADEEM GONZALES APRN Diagnosis: take one tablet by mouth once daily Last Documented On 01/29/2019 3:10PM By FRANNIE APODACA ; [facility], PC MetroNIDAZOLE 500MG Oral Tablet 10/10/2017 - 08/13/2020 Provider: MACK GRULLON CNM Diagnosis: twice a day Last Documented On 08/13/2020 11:49AM By LEATHA ROPER ; [facility], [facility] Claritin 10MG Oral Capsule 10/07/2017 - 07/04/2018 Pro vider: Diagnosis: Last Documented On 07/04/2018 9:53AM By NU GO ; [facility], PC Spironolactone 50MG Oral Tablet 10/07/2017 - 04/03/2024 Provider: MACK GRULLON, JEFFERYM Diagnosis: once a day Last Documented On 04/03/2024 9:26AM By ARGENTINA GERARD ; [facility], [facility] Hair Skin Nails Oral Capsule 10/22/2016 - 07/04/2018 P julio cesar: Diagnosis: Last Documented On 07/04/2018 9:53AM By NU GO ; [facility] IN[facility], PC MetroGel-Vaginal 0.75% 10/22/2016 - 10/07/2017 Provider: RAGHAVENDRA PLAZA M.D. Diagnosis: Acute vaginitis 1 every bedtime for 5 nights Last Documented On 10/07/2017 9:04AM By BROOKE SCHREIBER ; [facility] INSTRU[facility], PC Diflucan 150MG Oral Tablet 10/22/2016 - 10/07/2017 Provider: RAGHAVENDRA PLAZA M.D. Diagnosis: Candidiasis of v ulva and vagina once a day Last Documented On 10/07/2017 9:04AM By BROOKE SCHREIBER ; [facility] INSTRU[facility], PC Spironolactone 50 MG Tablet 03/17/2016 - 10/22/2016 Pr ovider: Diagnosis: Last Documented On 10/22/2016 10:45AM By BROOKE SCHREIBER ; [facility] INSTRUCTOR, PC Mirena 20 MCG/24HR Intrauterine device 01/16/2015 - Provider: Diagnosis: PLACED: 12/19/2014REMOVAL DATE: 12/20/2019 Last Documented On 01/29/2019 3:09PM By FRANNIE APODACA ; [facility] INSTRU[facility], PC CALCIUM Tablet 01/16/2015 - 03/17/2016 Provider: Diagnosis: CALCIUM CHEW; PT IS UNSURE OF DOSAGE Last Documented On 03/17/2016 4:06PM By HENRRY MARTINI ; [facility] INSTRUCTOR, PC One-A-Day Womens 28 -0.8 & 223 MG Miscellaneous 11/15/2014 - 03/17/2016 Provider: Diagnosis: Last Documented On 03/17/2016 4:06PM By HENRRY MARTINI ; [facility] INSTRU[facility], PC Hydrocodone-Acetaminophen 7.5-325 MG Tablet 11/15/2014 - 12/17/2014 Provider: Diagnosis: Last Documented On 12/17/2014 3:06PM By BROOKE SCHREIBER ; [facility] INSTRU[facility], PC Ibuprofen 800 MG Tablet 11/15/2014 - 11/15/2014 Provid er: Diagnosis: Last Documented On 11/15/2014 2:49PM By BROOKE SCHREIBER ; [facility] INSTRU[facility], PC Quad Nipple Cream Cream 11/15/2014 - 03/17/2015 Provid er: RAGHAVENDRA PLAZA M.D. Diagnosis: Apply sparingly to breast af ter nursing. Wahs off prior to nursing. Last Documented On 03/17/2015 11:48AM By BROOKE SCHREIBER ; [facility] INSTRUCTOR, PC Breast Pump Miscellaneous (not specified) 09/05/2014 - 09/19/2014 Provider: ASTRID CHEW APRN Diagnosis: CARE AND EXAMINATION OF LACTATING MOTHER double electric breast pump - medela Last Documented On 09/19/2014 11:39AM By BROOKE SCHREIBER ; [facility] INSTRUCTOR, PC Breast Pump Miscellaneous (not specified) 09/05/2014 - 03/17/2015 Provider: ASTRID CHEW APRN Diagnosis: CARE AND EXAMINATION OF LACTATING MOTHER Double electric medela breas t pumpUse as directed Last Documented On 03/17/2015 11:49AM By BROOKE SCHREIBER ; [facility] D[facility]NAM[facility] INSTRUCTOR, PC Flintstones Gummies Complete OR CHEW 06/13/2014 - 11/04 Provider: Diagnosis: Last Documented On 11/15/2014 2:49PM By BROOKE SCHREIBER ; [facility] D[facility] INSTRUCTOR, PC Ondansetron HCl 8 MG OR TABS 04/29/2014 - 06/13/2014 Provider: [facility] OB-ASSEMBLY MACHINE OFFBEARER TONIA Diagnosis: SUPERVISION OF O THER NORMAL 1/2 tab twice a day prn N Last Documented On 06/13/2014 11:48AM By CLARISA ROWLEY ; [facility] D[facility] INSTRUCTOR, PC Zofran 8 MG OR TABS 03/15/2014 - 04/29/2014 Provider: ASTRID CHEW APRN Diagnosis: NAUSEA 1/2 tab twice a day Last Documented On 04/29/2014 10:31AM By RADHA MILLS ; [facility] D[facility] INSTRUCTOR, PC DHA 200 MG OR CAPS 03/15/2014 - 06/13/2014 Provider: Diagnosis: Last Documented On 06/13/2014 11:49AM By CLARISA ROWLEY ; [facility] D[facility] INSTRUCTOR, PC VITAMIN OR TABS 03/15/2014 - 06/13/2014 Provi darion: Diagnosis: Last Documented On 06/13/2014 11:49AM By CLARISA ROWLEY ; [facility] INSTRU[facility], [facility] Medications Administered Includes: Administered Medications in patient's chart Medications Administered Diagnosis Date Pro vider Fluarix Quadrivalent 0.5 ML IM SUSP 03/15 ASTRID CHEW MACHINE SORTER GIVEN BY Martien MORRIS MA Last Documented On 4 11:47AM By MIRLANDE MORRIS ; [facility] INSTRU[facility], PC Liletta (52 MG) 19.5 MCG/DAY IU IUD 03/06 RAGHAVENDRA PLAZA M.D. INSERTED BY WK ON 03/06/19 Last Documented On 9 9:25AM By FRANNIE APODACA ; [facility] IN[facility], PC Vital Signs Includes: Vital Signs from 08/19/2023 through 08/18/2024 Vital Name 07/12/2024 10:06A 04/03/2024 09:26A 10/18 01:11P Blood Pressure Sitting R 122/74 BP Cuff Size Large Regular Temp-Temporal 97.5 98.2 Height (in) 71 71 71 Weight (lb) 183 189.7 196 Body Mass Index 25.5 26.5 27.3 Body Surface Area 2 2.1 2.1 Blood Pressure Sitting (mmHg) 122/78 Blood Pressure Sitting L 116/74 Last Documented: On 07/12/2024 10:07A M ; [facility], [facility] On 04/03/2024 9:28AM ; [facility], [facility] On 10/19/2023 1:12PM ; [facility], [facility] Results Includes: Results from 08/19/2023 through 08/18/2024 Comprehensive Metabolic Panel [facility] Ordered by AMBREEN ROSS APRN on 07/12/[address] [place] [address], [phone] Collected: 07/12/2024 Reported: 07/12/19 20:47 tel: Last Documented On 1:35PM ; [facility], [facility] Reviewed by AMBREEN Gonzalez on 07/16/2024; All test results are final unless otherwise noted. Note: Fasting: : NoTesting w as Performed at [facility], [address] [place], [place] [address]Enfwqks: No GLOBULIN 2.4 g/dL (1.7-4.0) None Last Documented On 5 11:30AM ; [facility] D[facility] INSTRUCTOR, Note: Responsible Observer: ( ) BUN/CREAT 16 Ratio None Last Documented On 5 11:30AM ; [facility], [facility] Note: Responsible Observer: ( ) ALBUMIN/GLOBULIN 2.0 Ratio None Last Documented On 5 11:30AM ; [facility] INSTRU[facility], [facility] Note: Responsible Observer: ( ) BILIRUBIN TOTAL 0.6 mg/dL (<1.4) None Last Documented On 5 11:30AM ; [facility] DYNAM[employer] INSTRUCTOR, Note: Responsible Observer: ( ) ALBUMIN 4.9 g/dL (3.7-5.0) None Last Documented On 5 11:30AM ; [facility] INSTRU[facility], [facility] Note: Responsible Observer: ( ) GLUCOSE 95 mg/dL (70-99) None Last Documented On 5 11:30AM ; [facility] DYNAM[facility] INSTRUCTOR, Note: Responsible Observer: ( ) ALKALINE PHOSPHATASE 67 IU/L (<170) None Last Documented On 5 11:30AM ; [facility], [facility] Note: Responsible Observer: ( ) UREA NITROGEN SERUM 15 mg/dL (6-24) None Last Documented On 5 11:30AM ; [facility] IN[facility], [facility] Note: Responsible Observer: ( ) CALCIUM 9.8 mg/dL (8.5-10.5) None Last Documented On 5 11:30AM ; [facility] INSTRU[facility], [facility] Note: Responsible Observer: ( ) CHLORIDE 106 mmol/L (96-109) None Last Documented On 5 11:30AM ; [facility] DYNAM[employer] INSTRUCTOR, Note: Responsible Observer: ( ) CREATININE SERUM 0.91 mg/dL (<1.11) None Last Documented On 5 11:30AM ; [facility] INSTRU[facility], [facility] Note: Responsible Observer: ( ) POTASSIUM 4.2 mmol/L (3.5-5.2) None Last Documented On 5 11:30AM ; [facility] DYNAM[employer] INSTRUCTOR, Note: Responsible Observer: ( ) PROTEIN SERUM 7.3 g/dL (6.0-8.2) None Last Documented On 5 11:30AM ; [facility] INSTRU[facility], [facility] Note: Responsible Observer: ( ) AST (SGOT) 19 IU/L (<45) None Last Documented On 5 11:30AM ; [facility] IN[facility], [facility] Note: Responsible Observer: ( ) ALT (SGPT) 16 IU/L (<50) None Last Documented On 5 11:30AM ; [facility] DYNAM[employer] INSTRUCTOR, Note: Responsible Observer: ( ) SODIUM 140 mmol/L (135-146) None Last Documented On 5 11:30AM ; [facility] INSTRU[facility], [facility] Note: Responsible Observer: ( ) CO2 29 mmol/L (23-32) None Last Documented On 5 11:30AM ; [facility] DYNAMICS INSTRUCTOR, Note: Responsible Observer: ( ) GFR NON- 70 mL/min/1.73m2 (>60) None Last Documented On 5 11:30AM ; [facility] INSTRU[facility], [facility] Note: Responsible Observer: ( ) GFR 85 mL/min/1.73m2 (>60) None Last Documented On 5 11:30AM ; [facility] DYNAM[employer] INSTRUCTOR, Note: Responsible Observer: ( ) Hepatitis Profile Acute [facility] Ordered by AMBREEN ROSS APRN on 07/12/[address] [place] [address], [phone] Collected: 07/12/2024 Reported: 07/12/19 20:50 tel:[phone] Last Documented On 1:35PM ; [facility], [facility] Reviewed by AMBREEN Gonzalez on 07/16/2024; All test results are final unless otherwise noted. Note: Testing was Performed at [facility], [address] [place] [address] HEPATITIS B CORE IgM ANTIBODY Negative (Negative) None Last Documented On 07/13/2024 11:30AM ; [facility], [facility] Note: Responsible Observer: () HEPATITIS Bs ANTIGEN Negative (Negative) None Last Documented On 07/13/2024 11:30AM ; [facility] IN[facility], [facility] Note: Responsible Observer: () HEPATITIS A IgM ANTIBODY Negative (Negative) None Last Documented On 07/13/2024 11:30AM ; [facility]NAM[facility] INSTRU[facility], [facility] Note: Responsible Observer: () HEPATITIS C ANTIBODY Negative (Negative) None Last Documented On 07/13/2024 11:30AM ; [facility] INSTRU[facility], [facility] Note: Responsible Observer: () HIV Ag/Ab Combo [facility] Ordered by AMBREEN ROSS APRN on 07/12/19 [address] [place], [phone] Collected: 07/12/2024 Reported: 07/12/19 20:50 tel:[phone] Last Documented On 1:35PM ; [facility] IN[facility], [facility] Reviewed by AMBREEN Gonzalez on 07/16/2024; All test results are final unless otherwise noted. Note: Testing was Performed at [facility], [address] [place] [address] HIV Ag/Ab COMBO Negative (Negative) None Last Documented On 07/13/2024 11:30AM ; [facility] D[facility] INSTRU[facility], [facility] Note: Responsible Observer: ([id number]) Complete Blood Count w/Auto Diff [facility] Ordered by AMBREEN ROSS APRN on 07/12/19 [address] [place], [phone] Collected: 07/12/2024 Reported: 07/12/19 25 20:24 tel: Last Documented On 5 1:35PM ; [facility] DYNAM[employer] INSTRUCTOR, Reviewed by AMBREEN Gonzalez on 07/16/2024; All test results are final unless otherwise noted. Note: Testing was Performed at [facility], [address] [place] [address] MONOCYTES% 8.3 % (0.0-12.5) None Last Documented On 5 11:30AM ; [facility] DYNAM[employer] INSTRUCTOR, Note: Responsible Observer: ([phone] ) NEUTROPHILS% 45.1 % (40.0-80.0) None Last Documented On 5 11:30AM ; [facility] DYNAM[employer] INSTRUCTOR, Note: Responsible Observer: ([phone] ) EOSINOPHILS% 1.7 % (0.0-7.0) None Last Documented On 5 11:30AM ; [facility] DYNAM[employer] INSTRUCTOR, Note: Responsible Observer: ([phone] ) BASOPHILS% 0.3 % (0.0-3.0) None Last Documented On 5 11:30AM ; [facility] DYNAM[employer] INSTRUCTOR, Note: Responsible Observer: ([phone] ) RDW 13.1 % (12.0-15.0) None Last Documented On 5 11:30AM ; [facility] DYNAMICS INSTRUCTOR, Note: Responsible Observer: ([phone] ) PLATELET COUNT 228 x10*3/uL (150-450) None Last Documented On 5 11:30AM ; [facility] DYNAMICS INSTRUCTOR, Note: Responsible Observer: ([phone] ) WHITE BLOOD COUNT 5.3 x10*3/uL (4.0-11.0) None Last Documented On 5 11:30AM ; [facility] DYNAMICS INSTRUCTOR, Note: Responsible Observer: ([phone] ) RED BLOOD COUNT 4.88 x10*6/uL (4.20-5.60) None Last Documented On 5 11:30AM ; [facility] DYNAM[facility] INSTRUCTOR, Note: Responsible Observer: ([phone] ) HEMOGLOBIN 14.8 g/dL (12.0-15.5) None Last Documented On 5 11:30AM ; [facility], [facility] Note: Responsible Observer: ([phone] ) HEMATOCRIT 43.8 % (37.0-48.0) None Last Documented On 5 11:30AM ; [facility] INSTRU[facility], [facility] Note: Responsible Observer: ([phone] ) MCV 90 fL (80-100) None Last Documented On 5 11:30AM ; [facility] D[facility] INSTRU[facility], [facility] Note: Responsible Observer: ([phone] ) MCH 30.3 pg (25.0-32.0) None Last Documented On 5 11:30AM ; [facility] D[facility] INSTRU[facility], [facility] Note: Responsible Observer: ([phone] ) MCHC 33.8 g/dL (31.0-35.0) None Last Documented On 11:30AM ; [facility] INSTRU[facility], [facility] Note: Responsible Observer: ([phone] ) NEUTROPHIL ABSOLUTE 2.4 x10*3/uL (1.8-7.6) None Last Documented On 5 11:30AM ; [facility] D[facility] INSTRU[facility], PC Note: Responsible Observer: ([phone] ) LYMPHOCYTE ABSOLUTE 2.3 x10*3/uL (1.0-4.8) None Last Documented On 5 11:30AM ; [facility] D[facility]NAM[facility] INSTRU[facility], PC Note: Responsible Observer: ([phone] ) MONOCYTE ABSOLUTE 0.4 x10*3/uL (0.0-2.0) None Last Documented On 5 11:30AM ; [facility] DYNAM[facility] INSTRU[facility], PC Note: Responsible Observer: ([phone] ) EOSINOPHIL ABSOLUTE 0.1 x10*3/uL (0.0-0.5) None Last Documented On 5 11:30AM ; [facility] DYNAM[facility] INSTRU[facility], PC Note: Responsible Observer: ([phone] ) BASOPHIL ABSOLUTE 0.0 x10*3/uL (0.0-0.2) None Last Documented On 5 11:30AM ; [facility] D[facility] INSTRU[facility], PC Note: Responsible Observer: ([phone] ) LYMPHOCYTES% 44.6 % (15.0-40.0) H (High) Last Documented On 11:30AM ; [facility] GROUP DYNAMICS INSTRUCTOR, PC Note: Responsible Observer: ([phone] ) Syphilis Treponemal Total An tibody with Reflex to [facility] Ordered by AMBREEN ROSS APRN on 07/12/19 [address] [place], [phone] Collected: 07/12/2024 Reported: 07/13/19 10:24 tel:[phone] Last Documented On 1:35PM ; [facility] GROUP DYNAMICS INSTRUCTOR, PC Reviewed by AMBREEN Gonzalez on 07/16/2024; All test results are final unless otherwise noted. Note: Testing was Performed at [facility], [address] [facility] [address], [place] [address] SYPHILIS TREPONEMAL TOTAL ANTIBODY Non-Reactive (Non-Reactive) None Last Documented On 07/13/2024 11:30AM ; [facility] DYNAMICS INSTRUCTOR, PC Note: Responsible Observer: ([phone]) Reported [facility] Ordered by AMBREEN ROSS APRN on 07/12/19 [address] [place], [phone] Collected: 07/12/2024 Reported: 07/13/19 10:25 tel:[phone] Last Documented On 1:35PM ; [facility] GROUP DYNAMICS INSTRUCTOR, PC Reviewed by AMBREEN Gonzalez on 07/16/2024; All test results are final unless otherwise noted. Reported Physicians See Note None Last Documented On 07/13/2024 11:30AM ; [facility] GROUP DYNAMICS INSTRUCTOR, PC Note: Reported Physicians:Ordering: Jasmine ROSSding: AMBREEN ROSS Recurrent Vaginitis AIT Ordered by AMBREEN ROSS APRN on 07/12/19 Collected: 07/12/2024 Reported: 07/13/19 08:19 Last Documented On 9:23AM ; [facility] GROUP DYNAMICS INSTRUCTOR, PC Reviewed by AMBREEN Gonzalez on 07/16/2024; All test results are final unless otherwise noted. ermB, C; mefA 17.722 ppm (23.000 - 27.611) A (Abnormal) Last Documented On 5 10:01AM ; [facility] GROUP DYNAMICS INSTRUCTOR, Note: Detected tet B, tet M 21.181 ppm (23.000 - 27.778) A (Abnormal) Last Documented On 5 10:01AM ; [facility] GROUP DYNAMICS INSTRUCTOR, Note: Detected PDF Report See Note None Last Documented On 5 10:01AM ; [facility] DYNAMICS INSTRUCTOR, Note: Real-Time polymerase chain reactio n (TaqMan qPCR) was utilized for detection for all tested organisms and resistance genes. Initiation of antimicrobial therapy prior to testing may affect results and can lead to the detection of non-living microorganisms. Detection of microbes must be correlated with current/recent antibiotic usage and patient signs and symptoms. Microbial sensitivity testing is not performed at this lab. Astrobiologist to CFU/mL equivalent thresholds were established based on studies using known CFU/mL urine specimens performed at [facility] in [place], [place]. Testing performed by [facility] ([address] [facility] [place] [address]; CLIA# [id number]; Insurance Agent Kadeem Virk, PhD, [facility] This test was developed, and its performance characteristics determined by [facility]. It has not been cleared or approved by the FDA. However, such approval/clearance is not required, as the laboratory is regulated and qualified under CLIA to perform high-complexity testing. This test is used for clinical purposes and should not be regarded as investigational or for research. *Approximate copies of target nucleic acid per &micro;L (Low: <2,500 copies/&micro;L, Moderate: 2,500-50,000 copies/&micro;L, High: >50,000 copies/&micro;L) National Infectious Disease Consensus Data Potentially effective oral antibiotics, based on presence of detected microbes, antimicrobial resistance genes, and national antimicrobial sensitivity data (see Summary Antibiogram). Chlamydia trachomatis 0.000 ppm (23.000 - 31.467) N (Normal) Last Documented On 5 10:01AM ; [facility] DYNAMICS INSTRUCTOR, Note: Not Detected Trichomonas vaginalis 0.000 ppm (23.000 - 32.119) N (Normal) Last Documented On 5 10:01AM ; [facility] GROUP DYNAMICS INSTRUCTOR, Note: Not Detected Neisseria gonorrhoeae 0.000 ppm (23.000 - 32.117) N (Normal) Last Documented On 5 10:01AM ; [facility] DYNAMICS INSTRUCTOR, Note: Not Detected Atopobium vaginae 18.200 ppm (19.961 - 24.689) A (Abnormal) Last Documented On 5 10:01AM ; [facility] DYNAMICS INSTRUCTOR, Note: Detected BVAB 2,3 (bacterial vaginosis associated bacteria 2, 3); Mobiluncus spp 0.000 ppm (19.961 - 24.689) N (Normal) Last Documented On 5 10:01AM ; [facility] DYNAMICS INSTRUCTOR, Note: Not Detected Gardnerella vaginalis 17.000 ppm (19.961 - 24.689) A (Abnormal) Last Documented On 5 10:01AM ; [facility] GROUP DYNAMICS INSTRUCTOR, Note: Detected Megasphaera (Types 1, 2) 0.000 ppm (19.961 - 24.689) N (Normal) Last Documented On 5 10:01AM ; [facility] GROUP DYNAMICS INSTRUCTOR, Note: Not Detected Herpes simplex virus 1 0.000 ppm (23.000 - 32.355) N (Normal) Last Documented On 5 10:01AM ; [facility] GROUP DYNAMICS INSTRUCTOR, Note: Not Detected Herpes simplex virus 2 0.000 ppm (23.000 - 31.433) N (Normal) Last Documented On 5 10:01AM ; [facility] GROUP DYNAMICS INSTRUCTOR, Note: Not Detected Marybel albicans, parapsilosis, tropicalis 0.000 ppm (19.961 - 30.770) N (Normal) Last Documented On 5 10:01AM ; [facility] GROUP DYNAMICS INSTRUCTOR, Note: Not Detected Marybel glabrata (Nakaseomyces glabratus) 0.000 ppm (23.000 - 32.138) N (Normal) Last Documented On 5 10:01AM ; [facility] IN[facility] Note: Not Detected Marybel krusei (Pichia kudriavzevii) 0.000 ppm (23.000 - 32.271) N (Normal) Last Documented On 5 10:01AM ; [facility]NAM[facility] INSTRUCTOR, [facility] Note: Not Detected Ureaplasma urealyticum 25.929 ppm (19.961 - 24.689) A (Abnormal) Last Documented On 5 10:01AM ; [facility] GROUP DYNAMICS INSTRUCTOR, PC Note: Detected Ureaplasma parvum 22.108 ppm (19.961 - 24.689) A (Abnormal) Last Documented On 5 10:01AM ; [facility] GROUP DYNAMICS INSTRUCTOR, [facility] Note: Detected Mycoplasma genitalium 0.000 ppm (19.961 - 24.689) N (Normal) Last Documented On 5 10:01AM ; [facility] GROUP DYNAMICS INSTRUCTOR, [facility] Note: Not Detected Mycoplasma hominis 0.000 ppm (19.961 - 24.689) N (Normal) Last Documented On 5 10:01AM ; [facility] GROUP DYNAMICS INSTRUCTOR, [facility] Note: Not Detected Reported Physicians AIT Ordered by AMBREEN ROSS APRN on 07/12/19 Collected: 07/12/2024 Reported: 07/13/19 25 08:21 Last Documented On 5 9:23AM ; [facility]NAM[facility] INSTRU[facility] Reviewed by AMBREEN Gonzalez on 07/16/2024; All test results are final unless otherwise noted. Reported Physicians See Note None Last Documented On 07/13/2024 10:01AM ; [facility] DYNAMICS INSTRUCTOR, [facility] Note: Reported Physicians:Ordering: Jasmine ROSSding: AMBREEN ROSS T3, Free [facility] Lab Ordered by KADEEM GONZALES APRN on 04/03 [address] [place], [address] Collected: 04/03/2024 Reported: 04/03/20 24 16:45 tel: Last Documented On 4 11:16AM ; [facility] GROUP DYNAMICS INSTRUCTOR, Reviewed by KADEEM GONZALES APRN on 04/04/2024; All test results are final unless otherwise noted. Review Note Provider Name Date Linda,Your recent lab work is normal.You tested negative for gonorrhea and chlamydia. Your thyroid panel and vitamin B12 levels were normal.Please let me know if you have any questions. Catalina Gonzales APRN. KADEEM GONZALES APRN 04/04/2024 Note: Testing was Performed at [facility], [address] [place] [address] T3, FREE 3.9 pg/mL (2.3-4.2) None Last Documented On 04/03/2024 4:50PM ; [facility] GROUP DYNAMICS INSTRUCTOR, Note: Responsible Observer: ([id number]) Free T4 [facility] Lab Ordered by KADEEM GONZALES APRN on 04/03 [address] [place], [address] Collected: 04/03/2024 Reported: 04/03/20 16:45 tel: Last Documented On 11:16AM ; [facility] GROUP DYNAMICS INSTRUCTOR, Reviewed by KADEEM GONZALES APRN on 04/04/2024; All test results are final unless otherwise noted. Review Note Provider Name Date Linda,Your recent lab work is normal.You tested negative for gonorrhea and chlamydia. Your thyroid panel and vitamin B12 levels were normal.Please let me know if you have any questions. Catalina Gonzales APRN. KADEEM GONZALES APRN 04/04/2024 Note: Testing was Performed at [facility], [address] [place] [address] FREE T4 1.3 ng/dL (0.9-1.8) None Last Documented On 04/03/2024 4:50PM ; [facility] GROUP DYNAMICS INSTRUCTOR, Note: Results from patients taking biotin supplements or receiving high-dose biotin therapy should be interpreted with caution due to possible interference with this test.Responsible Observer: ([id number]) TSH 3rd Generation, Ultrasensitive Physi cia Lab Ordered by KADEEM GONZALES APRN on 04/03 [address] [place], [address] Collected: 04/03/2024 Reported: 04/03/20 16:45 tel: Last Documented On 11:16AM ; [facility] GROUP DYNAMICS INSTRUCTOR, Reviewed by KADEEM GONZALES APRN on 04/04/2024; All test results are final unless otherwise noted. Review Note Provider Name Date Linda,Your recent lab work is normal.You tested negative for gonorrhea and chlamydia. Your thyroid panel and vitamin B12 levels were normal.Please let me know if you have any questions. Catalina Gonzales APRN. KADEEM GONZALES APRN 04/04/2024 Note: Testing was Performed at [facility], [address] [place] [address] TSH 3RD GENERATION, ULTRASENSITIVE 2.232 uIU/mL (0.550-4.780) None Last Documented On 4:50PM ; [facility] GROUP DYNAMICS INSTRUCTOR, Note: Responsible Observer: ([id number] ) Vitamin B12 [facility] Ordered by KADEEM GONZALES APRN on 04/[address] [place] [address], [phone] Collected: 04/03/2024 Reported: 04/03/20 16:44 tel: Last Documented On 4 11:16AM ; [facility] GROUP DYNAMICS INSTRUCTOR, Reviewed by KADEEM GONZALES APRN on 04/04/2024; All test results are final unless otherwise noted. Review Note Provider Name Date Linda,Your recent lab work is normal.You tested negative for gonorrhea and chlamydia. Your thyroid panel and vitamin B12 levels were normal.Please let me know if you have any questions. Catalina Gonzales APRN. KADEEM GONZALES APRN 04/04/2024 Note: Testing was Performed at [facility], [address] [place] [address] VITAMIN B12 504 pg/mL (>209) None Last Documented On 04/03/2024 4:50PM ; [facility] GROUP DYNAMICS INSTRUCTOR, Note: Responsible Observer: ([id number]) Reported Physicians Phys[facility] Lab Ordered by KADEEM GONZALES APRN on 04/03 [address] [place], [address] Collected: 04/03/2024 Reported: 04/03/20 24 16:46 tel: Last Documented On 4 11:16AM ; [facility] GROUP DYNAMICS INSTRUCTOR, [facility] Reviewed by KADEEM GONZALES APRN on 04/04/2024; All test results are final unless otherwise noted. Review Note Provider Name Date Linda,Your recent lab work is normal.You tested negative for gonorrhea and chlamydia. Your thyroid panel and vitamin B12 levels were normal.Please let me know if you have any questions. Catalina Gonzales APRN. KADEEM GONZALES APRN 04/04/2024 Reported Physicians See Note None Last Documented On 04/03/2024 4:50PM ; [facility] GROUP DYNAMICS INSTRUCTOR, PC Note: Reported Physicians:Ordering: Kadeem GonzalesAttending: KADEEM GONZALES Chlamydia/GC PCR (NAAT), Liquid Base Via l [facility] Ordered by KADEEM GONZALES APRN on 04/03 [address] [place], [address] Collected: 04/03/2024 Reported: 04/04/20 24 06:18 tel: Last Documented On 4 8:34AM ; [facility] GROUP DYNAMICS INSTRUCTOR, [facility] Reviewed by KADEEM GONZALES APRN on 04/09/2024; All test results are final unless otherwise noted. Review Note Provider Name Date Linda,Your recent pap smear i s normal and HPV is negative.Please let me know if you have any questions.SILVINA Vann APRN 04/09/2024 Note: Testing was Performed at [facility], [address] [place] [address] CHLAMYDIA RNA AMPLIFIED Negative (Negative) None Last Documented On 04/09/2024 7:58AM ; [facility] GROUP DYNAMICS INSTRUCTOR, PC Note: Responsible Observer: ([id number]) N. GONORRHOEAE RNA AMPLIFIED Negative (Negative) None Last Documented On 04/09/2024 7:58AM ; [facility] GROUP DYNAMICS INSTRUCTOR, PC Note: Responsible Observer: ([id number]) HPV High Risk Screen w/Reflex to 16/18 G enotype [facility] Lab Ordered by KADEEM GONZALES APRN on 04/03 [address] [place], [address] Collected: 04/03/2024 Reported: 04/09/20 03:33 tel:[phone] Last Documented On 4 8:34AM ; [facility] GROUP DYNAMICS INSTRUCTOR, [facility] Reviewed by KADEEM GONZALES APRN on 04/09/2024; All test results are final unless otherwise noted. Review Note Provider Name Date Linda,Your recent pap smear i s normal and HPV is negative.Please let me know if you have any questions.SILVINA Vann APRN 04/09/2024 Note: Testing was Performed at [facility], [address] [place] [address] HPV HIGH RISK Negative (Negative) None Last Documented On 04/09/2024 7:58AM ; [facility] GROUP DYNAMICS INSTRUCTOR, PC Note: The Aptima HPV High Risk Screen is an in vitro qualitative diagnostic test for the detection of E6/E7 mRNA from 14 high-risk Human Papillomavirus (HPV) types in cervical specimens. The high-risk HPV types detected by the assay include: 16, 18, 31, 33, 35, 39, 45, 51, 52, 56, 58, 59, 66, and 68. The screening test does not determine the specific HPV type present, nor does it detect any non-high risk HPV types. Responsible Observer: ([id number]) PAP: ThinPrep Image [facility] Ordered by KADEEM GONZALES APRN on 04/[address] [place] [address], [phone] Collected: 04/03/2024 Reported: 04/06/20 24 10:35 tel:[phone] Last Documented On 4 8:34AM ; [facility] GROUP DYNAMICS INSTRUCTOR, [facility] Reviewed by KADEEM GONZALES APRN on 04/09/2024; All test results are final unless otherwise noted. Review Note Provider Name Date Linda,Your recent pap smear i s normal and HPV is negative.Please let me know if you have any questions.SILVINA Vann APRN 04/09/2024 APResult AP results None Last Documented On 04/09/2024 7:58AM ; [facility] GROUP DYNAMICS INSTRUCTOR, PC Note: FINAL CYTOLOGY REPORT Exfoliative CytologyCervixNegative for intraepithelial lesion or malignancyThis specimen has been forwarded for HPV testing per clinician request.Screened in [place] [facility] by CLAY Cortez(ASCP) on 04/06/2024 @ 10:35 AM ---------Liquid-Based (ThinPrep Image)HistoryLMP: NONEUterus: IntactContraceptive/Hormonal Therapy: IUDSpecimen AdequacySatisfactory for evaluation, Bacterial overlayThe Pap test is a screening test for cervical cancer with inherent false negative results.Specimen processed successfully by automated cable television access coordinator device ThinPrep Imaging System, [employer], [place], [place]. Reported Physicians [facility] Ordered by KADEEM GONZALES APRN on 04/[address] [place] [address], [phone] Collected: 04/03/2024 Reported: 04/09/20 24 03:33 tel: Last Documented On 8:34AM ; [facility] GROUP DYNAMICS INSTRUCTOR, PC Reviewed by KADEEM GONZALES APRN on 04/09/2024; All test results are final unless otherwise noted. Review Note Provider Name Date Linda,Your recent pap smear i s normal and HPV is negative.Please let me know if you have any questions.SILVINA Vann APRN 04/09/2024 Reported Physicians See Note None Last Documented On 04/09/2024 7:58AM ; [facility] GROUP DYNAMICS INSTRUCTOR, PC Note: Reported Physicians:Ordering: Kadeem GonzalesAttending: KADEEM GONZALES Hepatitis Profile Acute [facility] Ordered by LEATHA ROPER PA-C on [address] [place] [address], [phone] Collected: 10/19/2023 Reported: 10/19/19 24 20:37 tel:[phone] Last Documented On 12:14PM ; [facility] GROUP DYNAMICS INSTRUCTOR, PC Reviewed by LEATHA Xiong on 10/20/2023; All test results are final unless otherwise noted. Note: Testing was Performed at [facility], [address] [place] [address] HEPATITIS B CORE IgM ANTIBODY Negative (Negative) None Last Documented On 10/20/2023 11:42AM ; [facility] GROUP DYNAMICS INSTRUCTOR, PC Note: Responsible Observer: ([id number]) HEPATITIS Bs ANTIGEN Negative (Negative) None Last Documented On 10/20/2023 11:42AM ; [facility] GROUP DYNAMICS INSTRUCTOR, PC Note: Responsible Observer: () HEPATITIS A IgM ANTIBODY Negative (Negative) None Last Documented On 10/20/2023 11:42AM ; [facility] GROUP DYNAMICS INSTRUCTOR, PC Note: Responsible Observer: () HEPATITIS C ANTIBODY Negative (Negative) None Last Documented On 10/20/2023 11:42AM ; [facility] GROUP DYNAMICS INSTRUCTOR, PC Note: Responsible Observer: ([id number]) HIV Ag/Ab Combo [facility] Ordered by LEATHA ROPER PA-C on [address] [place] [address], [phone] Collected: 10/19/2023 Reported: 10/19/19 20:37 tel:[phone] Last Documented On 4 12:14PM ; [facility] GROUP DYNAMICS INSTRUCTOR, PC Reviewed by LEATHA Xiong on 10/20/2023; All test results are final unless otherwise noted. Note: Testing was Performed at [facility], [address] [place] [address] HIV Ag/Ab COMBO Negative (Negative) None Last Documented On 10/20/2023 11:42AM ; [facility] GROUP DYNAMICS INSTRUCTOR, PC Note: Responsible Observer: ([id number]) Syphilis Treponemal Total An tibody with Reflex to TP-PA [facility] Ordered by LEATHA ROPER PA-C on [address] [place], [address] Collected: 10/19/2023 Reported: 10/20/19 11:33 tel:[phone] Last Documented On 4 12:14PM ; [facility] GROUP DYNAMICS INSTRUCTOR, PC Reviewed by LEATHA Xiong on 10/20/2023; All test results are final unless otherwise noted. Note: Testing was Performed at [facility], [address] [facility] [address], [place] [address] SYPHILIS TREPONEMAL TOTAL ANTIBODY Non-Reactive (Non-Reactive) None Last Documented On 10/20/2023 11:42AM ; [facility] GROUP DYNAMICS INSTRUCTOR, PC Note: Responsible Observer: ([id number]) Reported Physicians [facility] Ordered by LEATHA ROPER PA-C on [address]24 [address] [place], [address] Collected: 10/19/2023 Reported: 10/20/19 11:36 tel:[phone] Last Documented On 4 12:14PM ; [facility] GROUP DYNAMICS INSTRUCTOR, PC Reviewed by LEATHA Xiong on 10/20/2023; All test results are final unless otherwise noted. Reported Physicians See Note None Last Documented On 10/20/2023 11:42AM ; [facility] GROUP DYNAMICS INSTRUCTOR, PC Note: Reported Physicians:Ordering: Leatha RoperAttending: LEATHA ROPER Chlamydia/GC/ Trich by PCR (NAAT) Physic ians Lab Ordered by LEATHA ROPER PA-C on [address]24 [address] [place], [address] Collected: 10/19/2023 Reported: 10/20/19 09:35 tel:[phone] Last Documented On 4 12:14PM ; [facility] GROUP DYNAMICS INSTRUCTOR, PC Reviewed by LEATHA Xiong on 10/20/2023; All test results are final unless otherwise noted. Note: Testing was Performed at [facility], [address] [place] [address] TRICHOMONAS RNA AMPLIFIED Negative (Negative) None Last Documented On 10/20/2023 10:06AM ; [facility] GROUP DYNAMICS INSTRUCTOR, PC Note: Responsible Observer: ([id number]) CHLAMYDIA RNA AMPLIFIED Negative (Negative) None Last Documented On 10/20/2023 10:06AM ; [facility] GROUP DYNAMICS INSTRUCTOR, PC Note: Responsible Observer: ([id number]) N. GONORRHOEAE RNA AMPLIFIED Negative (Negative) None Last Documented On 10/20/2023 10:06AM ; [facility] GROUP DYNAMICS INSTRUCTOR, PC Note: Responsible Observer: ([id number]) SOURCE: Cervix None Last Documented On 10/20/2023 10:06AM ; [facility] GROUP DYNAMICS INSTRUCTOR, PC Note: Responsible Observer: ([id number]) Reported Physicians [facility] Ordered by LEATHA ROPER PA-C on 024 [address] [place], [address] Collected: 10/19/2023 Reported: 10/20/19 24 09:35 tel: Last Documented On 4 12:14PM ; [facility] GROUP DYNAMICS INSTRUCTOR, PC Reviewed by LEATHA Xiong on 10/20/2023; All test results are final unless otherwise noted. Reported Physicians See Note None Last Documented On 10/20/2023 10:06AM ; [facility] GROUP DYNAMICS INSTRUCTOR, PC Note: Reported Physicians:Ordering: Leatha RoperAttending: LEATHA ROPER History of Present Illness History of Present Illness not supported for this document type No History of Present Illness Recorded Social History Description Last Updated control is not practiced 3 Last Documented On 3 2:35PM ; [facility] GROUP DYNAMICS INSTRUCTOR, PC Heterosexual activity 03/22/2023 Last Documented On 3 2:35PM ; [facility] GROUP DYNAMICS INSTRUCTOR, PC Occupation 03/18/2022 Last Documented On 2 3:38PM ; [facility] GROUP DYNAMICS INSTRUCTOR, PC Non-smoker 03/11/2020 Last Documented On 0 9:53AM ; [facility] DYNAMICS INSTRUCTOR, [facility] -2019 01/30/2019 Last Documented On 9 9:51AM ; [facility] GROUP DYNAMICS INSTRUCTOR, PC Never used drugs 10/07/2017 Last Documented On 8 1:05PM ; [facility] GROUP DYNAMICS INSTRUCTOR, PC 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 Last Documented On 8 1:05PM ; [facility] GROUP DYNAMICS INSTRUCTOR, PC Alcohol use 03/17/2015 Last Documented On 5 12:14PM ; [facility] GROUP DYNAMICS INSTRUCTOR, PC No tobacco use 03/17/2015 Last Documented On 5 12:14PM ; [facility] GROUP DYNAMICS INSTRUCTOR, PC Not a former smoker 03/17/2015 Last Documented On 5 12:14PM ; [facility] GROUP DYNAMICS INSTRUCTOR, PC Not using drugs 03/17/2015 Last Documented On 5 12:14PM ; [facility] GROUP DYNAMICS INSTRUCTOR, PC Alcohol use: 2 drinks or less per day Last Documented On 5 12:14PM ; [facility] DYNAMICS INSTRUCTOR, PC Sexually active 03/17/2015 Last Documented On 5 12:14PM ; [facility] GROUP DYNAMICS INSTRUCTOR, PC Work history 03/17/2015 Last Documented On 5 12:14PM ; [facility] GROUP DYNAMICS INSTRUCTOR, PC Smoking status : Never smoker 03/15/2014 Last Documented On 4 1:31PM ; [facility] GROUP DYNAMICS INSTRUCTOR, PC Procedures and Surgical History Includes: Procedures from 08/19/2023 through 08/18/2024 Procedures Code Diagnosis Performing Provider Service Location Service Date CBC with Automated differential WBC Count 99034 Enlarged lymph nodes, unspecified AMBREEN ROSS APRN [facility] OB-ASSEMBLY MACHINE OFFBEARER [place] 07/12/2024 Last Documented On 5 12:00PM ; [facility] GROUP DYNAMICS INSTRUCTOR, PC Syphilis Treponemal Total Ab with Reflex to TP-PA 91838 Enlarged lymph nodes, unspecified AMBREEN ROSS APRN [facility]SEM[facility] MACHINE [facility] [place] 07/12/2024 Last Documented On 5 12:00PM ; [facility] GROUP DYNAMICS INSTRUCTOR, PC HIV-1 antigen, with HIV-1 & HIV-2 antibodies, single result 60460 Enlarged lymph nodes, unspecified AMBREEN ROSS APRN [facility]-ASSEM[facility] MACHINE [facility] [place] 07/12/2024 Last Documented On 5 12:00PM ; [facility] GROUP DYNAMICS INSTRUCTOR, PC Collection of venous blood by venipuncture 16251 Enlarged lymph nodes, unspecified AMBREEN ROSS MACHINE SORTER [facility]AS[facility] M[facility] [place] 07/12/2024 Last Documented On 5 12:00PM ; [facility] GROUP DYNAMICS INSTRUCTOR, PC Hepatitis Panel 62454 Enlarged lymph nodes, unspecified AMBREEN ROSS MACHINE SORTER [facility]AS[facility] MACHINE [facility] [place] 07/12/2024 Last Documented On 5 12:00PM ; [facility] GROUP DYNAMICS INSTRUCTOR, PC Comprehensive Metabolic Panel 86985 Enlarged lymph nodes, unspecified AMBREEN ROSS MACHINE SORTER [facility]-ASSEM[facility] MACHINE [facility] [place] 07/12/2024 Last Documented On 5 12:00PM ; [facility] GROUP DYNAMICS INSTRUCTOR, PC HTRX Swab HTRX Acute vaginitis AMBREEN ROSS MACHINE SORTER [facility] OB-ASSEMBLY MACHINE OFFBEARER [place] 07/12/2024 Last Documented On 5 8:42PM ; [facility] GROUP DYNAMICS INSTRUCTOR, PC TSH 34090 Encntr for channel marketing manager e xam (general) (routine) w/o abn findings [facility] [place] 04/03/2024 Last Documented On 4 5:11PM ; [facility] GROUP DYNAMICS INSTRUCTOR, PC T4 Free 29780 Encntr for channel marketing manager e xam (general) (routine) w/o abn findings KADEEM GONZALES APRN [facility] OB-ASSEMBLY MACHINE OFF[facility]AR[facility] [place] 04/03/2024 Last Documented On 4 5:11PM ; [facility] GROUP DYNAMICS INSTRUCTOR, PC Pap Thin Prep (PLab $32) 85268 Encntr for channel marketing manager exam (general) (routine) w/o abn findings [facility] [place] 04/03/2024 Last Documented On 4 4:14PM ; [facility] GROUP DYNAMICS INSTRUCTOR, PC HPV; high-risk typing (PLab $42) 12173 Encounter for screening for human papillomavirus (HPV) KADEEM GONZALES APRN [facility] OB-ASSEMBLY MACHINE OFFBEAR[facility] [place] 04/03/2024 Last Documented On 4 3:30PM ; [facility] GROUP DYNAMICS INSTRUCTOR, PC Collection of venous blood by venipuncture 07263 Encntr for channel marketing manager exam (general) (routine) w/o abn findings KADEEM GON[facility]ALES [facility] [place] 04/03/2024 Last Documented On 4 5:11PM ; [facility] GROUP DYNAMICS INSTRUCTOR, PC Vitamin B12 83460 Encntr for channel marketing manager e xam (general) (routine) w/o abn findings KADEEM G[facility]ALES [facility] [place] 04/03/2024 Last Documented On 4 5:11PM ; [facility] GROUP DYNAMICS INSTRUCTOR, PC Gonorrhoeae Screening 98345 Encntr screen for infections w sexl mode of transmiss KADEEM GONZALES [facility] OB-ASSEMBLY MACHINE OFFBEARER [place] 04/03/2024 Last Documented On 4 5:11PM ; [facility] GROUP DYNAMICS INSTRUCTOR, PC Chlamydia Screening 93086 Encntr screen for infections w sexl mode of transmiss KADEEM GONZALES [facility] OB-ASSEMBLY MACHINE OFFBEARER [place] 04/03/2024 Last Documented On 4 5:11PM ; [facility] GROUP DYNAMICS INSTRUCTOR, PC T3 Free 27976 Encntr for channel marketing manager e xam (general) (routine) w/o abn findings KADEEM GONZALES [facility] OB-ASSEMBLY MACHINE OFFBEAR[facility] [place] 04/03/2024 Last Documented On 4 5:11PM ; [facility] GROUP DYNAMICS INSTRUCTOR, PC Immunization Administration Fee 83713 Encounter for immunization KADEEM GONZALES [facility] OB-ASSEMBLY MACHINE OFFBEAR[facility] [place] 04/03/2024 Last Documented On 4 2:55PM ; [facility] GROUP DYNAMICS INSTRUCTOR, PC Influenza virus vaccine, quadrivalent - FLUARIX 96419 Encounter for immunization KADEEM GONZALES [facility] OB-ASSEMBLY MACHINE OFFBEARER [place] 04/03/2024 Last Documented On 4 2:55PM ; [facility] GROUP DYNAMICS INSTRUCTOR, PC Hepatitis Panel 80625 Encntr screen fo r infections w sexl mode of transmiss LEATHA ROPER PA-C [facility] OB-ASSEMBLY MACHINE OFF[facility] [place] 10/19/2023 Last Documented On 4 9:59AM ; [facility] GROUP DYNAMICS INSTRUCTOR, PC Trichomonas Vaginalis 29500 Encntr screen for infections w sexl mode of transmiss LEATHA ROPER PA-C [facility] OB-ASSEMBLY MACHINE OFFBEAR[facility] [place] 10/19/2023 Last Documented On 4 11:57AM ; [facility] GROUP DYNAMICS INSTRUCTOR, PC Syphilis Treponemal Total Ab with Reflex to TP-PA 99689 Encntr screen for infections w sexl mode of transmiss LEATHA ROPER PA-C [facility] OB-ASSEMBLY MACHINE OFFBEAR[facility] [place] 10/19/2023 Last Documented On 4 9:59AM ; [facility] GROUP DYNAMICS INSTRUCTOR, PC HIV-1 antigen, with HIV-1 & HIV-2 antibodies, single result [id number] Encntr screen for infections w sexl mode of transmiss LEATHA ROPER PA-C [facility] MACH[facility] [place] 10/19/2023 Last Documented On 4 9:59AM ; [facility] Gonorrhoeae Screening [id number] Encntr screen for infections w sexl mode of transmiss LEATHA ROPER PA-C [facility] [place] 10/19/2023 Last Documented On 4 11:57AM ; [facility] Chlamydia Screening [id number] Encntr screen for infections w sexl mode of transmiss LEATHA ROPER PA-C [facility] [place] 10/19/2023 Last Documented On 4 11:57AM ; [facility] Collection of venous blood by venipuncture [id number] Encntr screen for infections w sexl mode of transmiss LEATHA ROPER PA-C [facility] [place] 10/19/2023 Last Documented On 4 2:23PM ; [facility] Surgical History Last Updated Surgical / procedural history 03/17/2015 Last Documented On 5 12:14PM ; [facility] Medical History Includes: Medical History in patient's chart Description Last Updated Last pap smear date 04/03/2024 5 Last Documented On 5 5:00PM ; [facility] LMP: None due to IUD 07/12/2024 Last Documented On 5 5:00PM ; [facility] History of dental implant 04/03/2024 Last Documented On 4 11:35AM ; [facility] Contraception: 03/22/2023 Last Documented On 3 2:35PM ; [facility] Date of last menstruation 03/22/2023 Last Documented On 3 2:35PM ; [facility] Result: normal NEG HPV 03/22/2023 Last Documented On 3 2:35PM ; [facility] Last mammogram date: 2013 NORMAL PER PT 03/22/2023 Last Documented On 3 2:35PM ; [facility] Result: abnormal (ASCUS 09/28/21, LSIL HR +03/16/21) 03/22/2023 Last Documented On 3 2:35PM ; [facility] Partner with vasectomy 03/18/2022 Last Documented On 2 3:38PM ; [facility] History of Cervical dysplasia--mild (GLEN I) 04/14/2021 04/22/2021 Last Documented On 1 3:42PM ; [facility] Exposure to STD 04/24/2020 Last Documented On 0 2:38PM ; [facility] History of SARS-associated coronavirus 03/11/2020 Last Documented On 0 9:53AM ; [facility] section was one 10/07/2017 Last Documented On 8 1:05PM ; [facility] History of extraction of wisdom tooth Last Documented On 8 1:05PM ; [facility] History of anxiety disorder NOS 10/08/19 18 Last Documented On 8 1:05PM ; [facility] History of depression 10/07/2017 Last Documented On 8 1:05PM ; [facility] History of urinary tract infection 10/07 Last Documented On 8 1:05PM ; [facility] History of vaginitis 10/07/2017 Last Documented On 8 1:05PM ; [facility] Upper gastrointestinal endos copy with removal of foreign body 1996 - swallowed a quarter 03/17/2015 Last Documented On 5 12:14PM ; [facility] 1 previous section(s) 5 Last Documented On 5 12:14PM ; [facility] Para 1 03/17/2015 Last Documented On 5 12:14PM ; [facility] section 10/28/2014 -Girl 015 Last Documented On 5 1:07PM ; [facility] History of allergic rhinitis spring gio rgies 03/25/2014 Last Documented On 4 1:02PM ; [facility] Human papilloma virus vaccine, quadrival ent 03/15/2014 Last Documented On 4 1:31PM ; [facility] 1 03/15/2014 Last Documented On 4 1:31PM ; [facility] Family History Includes: Family History in patient's chart Description Last Updated Paternal aunt's history of breast cancer 04/03/2024 Last Documented On 4 11:35AM ; [facility] Maternal grandmother's history of osteop orosis 04/03/2024 Last Documented On 4 11:35AM ; [facility] Maternal history of valvular heart disea se 04/03/2024 Last Documented On 4 11:35AM ; [facility] Maternal grandmother's history of myocar dial infarction 04/03/2024 Last Documented On 4 11:35AM ; [facility] Maternal grandmother's history of lung c ancer 04/03/2024 Last Documented On 4 11:35AM ; [facility] Maternal history of anxiety disorder NOS 10/07/2017 Last Documented On 8 1:05PM ; [facility] Maternal history of depression 8 Last Documented On 8 1:05PM ; [facility] INSTRUCTOR, No family history of malignant neoplasm of large intestine 03/17/2015 Last Documented On 5 12:14PM ; [facility] INSTRUCTOR, Maternal Grandmother - lung cancer, heart attack ~Mom - leaky heart valve ~Paternal - Pacemaker ~Mom/Grandmother/Aunt had placenta previa 03/15/2014 Last Documented On 4 1:31PM ; [facility]NAM[employer] INSTRUCTOR, No family history of diabetes mellitus 1 Last Documented On 4 1:31PM ; [facility] No family history of malignant female br east neoplasm 03/15/2014 Last Documented On 4 1:31PM ; [facility] No family history of malignant neoplasm of the ovary 03/15/2014 Last Documented On 4 1:31PM ; [facility] INSTRUCTOR, Review of Systems Review of Systems not supported for this document type No Review of Systems Recorded Mental Status No Mental Status Recorded Functional Status No Functional Status Recorded Physical Exam Physical Exam not supported for this document type No Physical Exam Recorded Immunizations Includes: Immunizations in patient's chart Vaccine Dose # Date Site Reaction(s) Status Source Influenza 1 4 Left Arm Complete (Administered ) [facility] Last Documented On 03/15/2014 11:46AM ; [facility] IN[facility]CTOR, Note: GIVEN BY Martine MORRIS MA Influenza 2 9 Left Deltoid Complete (Administered ) [facility] IN[facility]CTOR, Last Documented On 05/22/2019 9:13AM ; [facility] Note: GIVEN BY ELIZABETH CARPIO Influenza 3 0 Right Deltoid Complete (Administered ) [facility] Last Documented On 0 12:07PM ; [facility] Influenza 4 04/03/2024 Left Deltoid Complete (Admi nistered) [facility] Last Documented On 4 10:18AM ; [facility] Tdap 1 09/19/2014 Right Arm Complete (Administe red) [facility] Last Documented On 5 12:02PM ; [facility] Allergies Includes: Active, inactive, and resolved Allergies Substance Type Reaction Onset Date Resolved Date Statu s Mucinex DM 30-600 MG Oral Tablet, extended-release 12 hour Allergy Skin Rashes / Eruption of skin, Hives / Urticaria, FEET SWELL 03/15/2014 Active Last Documented On 5 10:07AM ; [facility] Ibuprofen Allergy Skin Rashes / Er uption of skin, Hives / Urticaria 11/15/2014 Active Last Documented On 5 10:07AM ; [facility] Encounters Includes: Encounters from 08/19/2023 through 08/18/2024 Encounter Provider Location Date Check-In Time Check-Out Time Diagnosis #PRESCRIPTION REFILLS AMBREEN ROSS APRN 07/16/19 25 09/28/2021 9:25AM 07/12/2024 11:59PM Office Visit AMBREEN ROSS APRN [facility] [place] 07/12/19 25 09/28/2021 10:00AM 10:34AM Yearly KADEEM GONZALES APRN [facility] [place] 04/03/20 24 09/28/2021 9:30AM 10:41AM Assessment of Fatigue,Routin e Pelvic Exam Office Visit LEATHA ROPER PA-C [facility] [place] 10/19/19 24 09/28/2021 1:15PM 1:27PM Assessment [use For S.o.a.p. Note Free Text] Insurance Includes: Active Insurance Policies Plan Name Member ID Group # Subscriber Relationship Effect deisy Dates 1 - [place] [id number] 113 LINDA GONG Self 09/28/2021 - U nknown Clinical Notes Includes: Signed Clinical Notes starting from 11/11/2022 * Progress note Date Encounter Last Documented by 07/16/2024 #PRESCRIPTION REFILLS Last docum ented on 07/16/2024; 9:27 AM, AMBREEN ROSS APRN; [facility] Discussed Health track swab positive for [...] this medication., 7 days, 0 refills EndCited * Progress note Date Encounter Last Documented by 07/12/2024 Office Visit Last documented on 07/12/2024; 5:00 PM, AMBREEN ROSS APRN; [facility] Active Problems & Conditions - 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 Sexual: Sexually active. Allergies [...] if symptoms do not resolve or improve. 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 Reason For Visit Gynecologic annual exam. History of Present Illness LINDA GONG is a 33 year old female. The patient presents for an annual exam. See details below. - Allergy list reviewed - Medication list reviewed - Feeling fine . Linda presents today for her annual exam. She denies ASSEMBLY MACHINE OFFBEARER concerns but does c/o increased fatigue. Menses [...] using drugs. Never used drugs. 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 Sexual: Sexually active heterosexual activity and control [...] for contraception. Plan StartCited - Encntr for channel marketing manager exam (general) (routine) w abnormal findings LABS: Pap Thin Prep: Co-Testing with HPV EndCited StartCited - Encntr for channel marketing manager exam (general) (routine) w/o abn findings Lab: CHLAMYDIA/GC PCR, LIQUID BASE VIAL Lab: PAP SMEAR THINPREP COMPUTER IMAGED Lab: T3, FREE Lab: TSH 3rd Generation, Ultrasensitive Lab: VITAMIN B12 Lab: T4, FREE EndCited StartCited - Other fatigue LABS: CBC with Diff, Comprehensive Metabolic Panel, B-12, T3 Free, T4 Free, TSH EndCited - Follow-up visit 1 year or as needed * Progress note Date Encounter Last Documented by 10/19/2023 Office Visit Last documented on 10/19/2023; 3:01 PM, LEATHA ROPER PA-C; [facility] Active Problems & Conditions - Anxiety Disorder of Unknown ([place] III) Etiology Chief Complaint The Chief Complaint [...] using drugs. Never used drugs. 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 Sexual: Sexually active heterosexual activity and control [...]
--- OUTSIDE RECORDS SUMMARY | 2024-08-18 07:25 | XMS_ITS | Clinical Summary ---
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 03/16/2021 MACK MILLS MSN, CNM Active Last Documented On 10:35AM ; [facility] Plan of Treatment Future Appointments Date Time Location Provi darion Yearly 04/08/2025 9:30AM [facility] DISPENSING SUPERVIS[facility] [place] Cyndie FARIAS APRN Last Documented On 9:59AM ; [facility] Assessments Includes: Assessments from this encounter [...] On 06/12/2024 11:45AM By NELY MCGUIRE ; [facility] Liletta (52 MG) 20.1 MCG/DAY Intrauterine Intrau terine device 03/29/2023 Provider: Diagnosis: 03/29/23 Last Documented On 03/29/2023 4:15PM By MARCO CRAWFORD ; [facility] VITAMIN Oral Tablet 03/11/2020 Provider: Diagnosis: Last Documented On 03/11/2020 9:35AM By JET SAENZ ; [facility] Culturelle Oral Capsule 03/11/2020 Provider: Diagnosis: Last Documented On 03/11/2020 9:34AM By JET SAENZ ; [facility] Medications Administered Includes: Administered Medications from [...] Active Last Documented On 5 10:07AM ; [facility] Ibuprofen Allergy Skin Rashes / Er uption of skin, Hives / Urticaria 11/15/2014 Active Last Documented On 5 10:07AM ; [facility] Insurance Includes: Active Insurance Policies Plan Name Member ID Group # Subscriber Relationship Effect deisy Dates 1 - [facility] [id number] 113 LINDARadha GONG Self 09/28/2021 - U nknown Clinical Notes Includes: Clinical Notes from this encounter No Clinical Notes Recorded
[2024-08-18 07:30] VITALS: BP 136/94; PULSE 86; RESP 16; O2SAT 99
--- NOTE | 2024-08-18 07:42 | ED_ITS ---
HPI - General Adult General Chief complaint: Unspecified Stated complaint: I think I have a blood clot Time Seen by Provider: 08/18/24 06:54 History of Present Illness HPI narrative: 33-year-old female presented to emergency department for evaluation for bilateral calf pain, chest pain and shortness of breath. Patient has no prior history of PE or DVT. Patient did have a tattoo 08/17 and states she was in the car for approximately 6 hours. Patient was complaining of some chest pain and shortness of breath. At time of evaluation patient is in no distress. Related Data Allergies Allergy/AdvReac Type Severity Reaction Status Date / Time guaifenesin AdvReac Intermediate Anaphylaxis Verified 08/18/24 05:48 Review of Systems 2 Review of Systems: All systems reviewed & are unremarkable except as noted in HPI and below Exam 2 Narrative: APPEARANCE: Well appearing, no pain, no distress, well-nourished. HEAD: normocephalic, atraumatic. EYES: PERRLA/EOMI, conjunctivae clear. NOSE: Normal no drainage EARS:TMS clear with good light reflex. THROAT: Pharynx clear, no exudate. NECK: Supple. No adenopathy, no masses. RESPIRATORY: Airway patent, respirations nonlabored. Clear to auscultation bilaterally, no rales, rhonchi, wheezing. CARDIOVASCULAR: Regular rate and rhythm without murmurs rubs or gallops. ABDOMINAL: Soft, nontender, nondistended, normal bowel sounds MUSCULOSKELETAL: Moves all extremities. Strength/ROM intact, No edema, No calf tenderness. NEURO: Alert. Cranial nerves II through XII intact. Good gait. Good coordination SKIN: Warm, dry. Normal Color Course Vital Signs Vital signs: Vital Signs Temperature 97.9 F 08/18/24 05:49 Pulse Rate 130 H 08/18/24 05:49 Respiratory Rate 17 08/18/24 05:49 Blood Pressure 147/102 H 08/18/24 05:49 Pulse Oximetry 98 08/18/24 05:49 Oxygen Delivery Room Air 08/18/24 05:49 Temperature 97.9 F 08/18/24 05:49 Pulse Rate 77 08/18/24 10:35 Respiratory Rate 16 08/18/24 10:35 Blood Pressure 130/92 H 08/18/24 10:35 Pulse Oximetry 100 08/18/24 10:35 Oxygen Delivery Room Air 08/18/24 05:49 Medical Decision Making [facility] Narrative Medical decision making narrative: 33-year-old female presenting to the emergency department for evaluation for lower extremity pain with associated cough and chest pain. Patient is currently afebrile with no leukocytosis and hemoglobin of 15.6. Patient did have elevated D-dimer and a CTA was negative for pulmonary embolism. Ultrasound was ordered and showed no evidence bilateral DVTs and patient's troponin was negative. Patient was comfortable the plan for discharge and close follow-up Differential Diagnosis Differential Diagnosis: Pulmonary embolism, DVT, COVID, RSV, influenza, pneumonia Vital Signs Vital Signs: Vital Signs Temperature 97.9 F 08/18/24 05:49 Pulse Rate 130 H 08/18/24 05:49 Respiratory Rate 17 08/18/24 05:49 Blood Pressure 147/102 H 08/18/24 05:49 Pulse Oximetry 98 08/18/24 05:49 Oxygen Delivery Room Air 08/18/24 05:49 Temperature 97.9 F 08/18/24 05:49 Pulse Rate 77 08/18/24 10:35 Respiratory Rate 16 08/18/24 10:35 Blood Pressure 130/92 H 08/18/24 10:35 Pulse Oximetry 100 08/18/24 10:35 Oxygen Delivery Room Air 08/18/24 05:49 Lab Data Lab results reviewed: Yes I reviewed the patient's lab results. 08/18/24 06:10 08/18/24 06:10 Labs: Lab Results 08/18/24 08/18/24 Range/Units 06:10 09:05 WBC 7.4 (4.5-10.0) K/mm3 RBC 5.14 (4.2-5.4) M/mm3 Hgb 15.6 H (12.0-15.0) g/dL Hct 45.0 (37.0-47.0) % MCV 87.5 (80-100) fl MCH 30.4 (26-34) pg MCHC 34.7 (32-36) g/dl RDW 12.4 (11.5-14.5) % Plt Count 229 (150-375) k/mm3 MPV 9.5 (7.4-10.4) fl Immature Gran % (Auto) 0.3 (0-0.5) % Neut % (Auto) 69.8 (45.5-73.1) % Lymph % (Auto) 23.8 (18.3-44.2) % [place] % (Auto) 5.4 (2.6-8.5) % Eos % (Auto) 0.3 (0-4.4) % Baso % (Auto) 0.4 (0.2-1.2) % Lymph # (Auto) 1.77 (0.9-3.2) K/mm3 [place] # (Auto) 0.4 (0.1-0.6) K/mm3 Eos # (Auto) 0.0 (0-0.3) K/mm3 Baso # (Auto) 0.0 (0.0-0.1) K/mm3 Abs Immat Gran (auto) 0.02 (0.00-0.031) K/mm3 Absolute Neuts (auto) 5.2 (1.3-6.7) K/mm3 Absolute Nucleated RBC 0.000 (0.0-0.012) K/mm3 Nucleated RBC % 0.0 (0.0-0.2) % PT 13.0 (11.1-14.7) Seconds INR 0.9 APTT 28.3 (22.3-36.8) Seconds D-Dimer 0.68 H (<0.48) ug/mL Sodium 139 (137-145) mmol/L Potassium 3.5 (3.4-5.0) mmol/L Chloride 103 (98-107) mmol/L Carbon Dioxide 24 (22-30) mmol/L Anion Gap 12 (4-12) mmol/L BUN 13 (7-17) mg/dL Creatinine 0.87 (0.7-1.0) mg/dL Estim Creat Clear Calc 93 ml/min Estimated GFR > 60 (59 - ) Glucose 130 H (65-110) mg/dL Calcium 9.7 (8.4-10.2) mg/dL Total Bilirubin 0.7 (0.2-1.3) mg/dL AST 31 (14-36) U/L ALT 35 (6-35) U/L Alkaline Phosphatase 77 (38-126) U/L Troponin I < 0.012 < 0.012 (0.000-0.034) ng/mL Total Protein 8.0 (6.3-8.2) g/dL Albumin 4.8 (3.5-5.1) g/dL Lipase 56 (23-300) U/L Imaging Data Radiologist's impression: Impressions Chest X-Ray 08/18/24 07:06 Impression: Normal chest. Venous Doppler Study 08/18/24 08:07 Impression: No evidence of deep vein thrombosis involving the bilateral lower extremities. Chest CTA 08/18/24 10:05 Impression: No evidence of pulmonary embolus, aortic dissection, or aortic aneurysm. Clear lungs. Discharge Plan Discharge Clinical Impression: Bilateral leg pain, Chest pain Patient Disposition: Home, Self-Care Condition: Stable Instructions: Antibiotic Form Additional Instructions: Tylenol and ibuprofen for pain control. Have close follow-up with your primary care physician. If you have any worsening symptoms and please call or return to the emergency department. Patient Language: Turkmen Follow-up/Referrals: PHYSICIAN,TOPPER PRESS OPERATOR [Primary Care Provider] -
--- NOTE | 2024-08-18 08:37 | ECG_ITS ---
Test Date: 2024-08-18 09:00:13 Measurements Intervals [place] Rate: 91 P: 70 [place]: 159 QRS: 22 QRSD: 90 T: 60 QT: 335 QTc: 413 Interpretive Statements SINUS RHYTHM POSSIBLE LEFT ATRIAL ENLARGEMENT Electronically Signed On 08-19-2024 13:56:26 CDT by Chepe Felipe D.O
[2024-08-18 09:31] LABS: D Dimer 0.68 ug/mL (<0.48)
[2024-08-18 09:44] LABS: Troponin I < 0.012 ng/mL (0.000-0.034)
[2024-08-18 10:35] VITALS: BP 130/92; PULSE 77; RESP 16; O2SAT 100
== END 2024-08-18 10:35 | disposition home or self-care (01) ==
PROVIDERS: Emergency Medicine; Emergency Provider Emergency Medicine
DX: M79.662 Pain in left lower leg (principal); M79.661 Pain in right lower leg; R07.9 Chest pain, unspecified; R00.0 Tachycardia, unspecified; R94.31 Abnormal electrocardiogram [ECG] [EKG]
CPT/HCPCS: 36415; 71045; 71275; 80053; 83690; 84484; 85025; 85380; 85610; 85730; 93005; 93970; 99284; Q9967